=== PATIENT | female | born 1945 | race Caucasian/White ===

== ENCOUNTER 2016-06-15 12:05 | Inpatient (IN) | payer OTHER ==
[2016-06-15] MEDS ORDERED: SODIUM CHLORIDE 1,000 ML IV STA (12:27)
--- NOTE | 2016-06-15 12:43 | PDOC ---
History of Present Illness - General Chief Complaint: Rectal Bleed Stated Complaint: BLOOD IN STOOL Time Seen by Provider: 06/15/16 12:26 History Source: Patient Exam Limitations: No Limitations - History of Present Illness Travel History: No Initial Comments: 06/15/16 12:54 Chief complaint: Abdominal pain and rectal bleeding Patient is a 70-year-old female street of hypertension who has 1 day of left sided abdominal pain with 4 episodes of diarrhea with bright red blood. And is not on any anticoagulants or antiplatelet therapy. no fever or vomiting. had colonoscopy 6 months ago with ?pinched vein. GENERAL/CONSTITUTIONAL: No fever, weakness. dizziness HEAD, EYES, EARS, NOSE AND THROAT: No change in vision. No ear pain or discharge. No sore throat. CARDIOVASCULAR: No chest pain RESPIRATORY: No shortness of breath or cough GASTROINTESTINAL: +pain, no: nausea, vomiting, +diarrhea, + rectal bleeding GENITOURINARY: No dysuria MUSCULOSKELETAL: No neck or back pain SKIN: No rash NEUROLOGIC: No headache, vertigo, loss of consciousness, or loss of sensation. GENERAL: The patient is awake, alert, and fully oriented, in no acute distress. HEAD: Normal with no signs of trauma. EYES: Pupils equal, round and reactive to light, sclera anicteric, conjunctiva clear. ENT: pharynx: no erythema, no exudate, uvula midline NECK: supple CHEST: clear, nontender, rr ABD: soft, + bowel sounds, minimal left lower quadrant tenderness, no guarding Rectal exam: Tender, with brown soft stool EXTREMITIES: Normal range of motion, no edema. NEUROLOGICAL: Normal speech, normal gait. SKIN: Warm, Dry Past History - Past Medical History Allergies/Adverse Reactions: Allergies Allergy/AdvReac Type Severity Reaction Status Date / Time No Known Allergies Allergy Verified 06/15/16 12:06 Home Medications: Ambulatory Orders Ergocalciferol (Vitamin D2) [Vitamin D] 50,000 unit PO WEEKLY 04/12/15 Hydrochlorothiazide [Hctz -] 12.5 mg PO DAILY 04/12/15 Multivitamins [Tab-A-Vit -] 1 tab PO DAILY 04/12/15 Ranitidine [Zantac -] 150 mg PO BID 04/12/15 Anemia: Yes HTN: Yes - Immunization History Immunization Up to Date: Yes - Psycho/Social/Smoking Cessation Hx Anxiety: No Suicidal Ideation: No Smoking Status: Yes Smoking History: Former smoker Have you smoked in the past 12 months: No Number of Cigarettes Smoked Daily: 5 Information on smoking cessation initiated: No Hx Alcohol Use: No Drug/Substance Use Hx: No Substance Use Type: None *Physical Exam - Vital Signs Last Vital Signs Temp Pulse Resp BP Pulse Ox 98.1 F 77 20 159/67 98 06/15/16 12:07 06/15/16 12:07 06/15/16 12:07 06/15/16 12:07 06/15/16 12:07 Heart Score/ECG Review - ECG Intrepretation Comment:: 06/15/16 15:23 Sinus bradycardia, 56, no ST changes ED Treatment Course - LABORATORY CBC & Chemistry Diagram: 06/15/16 13:00 06/15/16 13:00 - RADIOLOGY Radiology Studies Ordered: Category Date Time Status ABDOMEN & PELVIS CT WITH CONTR [CT] Stat CT Scan 06/15/16 12:30 Ordered Medical Decision Making - Medical Decision Making 06/15/16 13:04 Patient with 1 day of left lower quadrant pain, diarrhea or rectal bleeding, patient will be evaluated with labs, CT scan to look for diverticulitis, had 4 episodes of rectal bleeding, + stable 06/15/16 16:34 CT scan shows sigmoid: Thickening and thickening of the jejunal bowel loop in the mid right abdomen. Given sudden onset and several episodes of rectal bleeding, patient will be started on antibiotics and be admitted for further evaluation *DC/Admit/Observation/Transfer Diagnosis at time of Disposition: Non-specific colitis, Rectal hemorrhage - Discharge Dispostion Condition at time of disposition: Stable Admit: Yes
[2016-06-15 13:15] LABS: BASOPHIL 0.6 % (0-2.0); MCH 26.4 pg (25.7-33.7); MCHC 32.3 g/dl (32.0-36.0); MEAN CELL VOLUME 81.7 fl (80-96); MEAN PLT VOLUME 9.7 fl (7.5-11.1); PLATELET COUNT 168 K/MM3 (134-434); RDW 14.4 % (11.6-15.6); WHITE BLOOD COUNT 6.2 K/mm3 (4.0-10.0)
[2016-06-15 13:29] LABS: INR 1.02 (0.82-1.09); PROTHROMBIN TIME (PATIENT) 11.2 SEC (9.98-11.88)
[2016-06-15 13:33] LABS: ALBUMIN 3.6 g/dl (3.4-5.0); ALK PHOS 87 U/L (45-117); ANION GAP 9 (8-16); BILIRUBIN,TOTAL 0.3 mg/dL (0.2-1.0); CALCIUM 8.8 mg/dL (8.5-10.1); CO2 28 mmol/L (21-32); CREATININE 0.8 mg/dL (0.55-1.02); GLUCOSE,RANDOM 93 mg/dL (74-106); SGOT/AST 24 U/L (15-37); SGPT/ALT 25 U/L (12-78); TOT PROT 6.9 g/dl (6.4-8.2)
--- NOTE | 2016-06-15 14:10 | PDOC ---
[id number] 98 06/15/16 12:07 06/15/16 12:07 06/15/16 12:07 06/15/16 12:07 06/15/16 12:07 - Physical Exam Comments: 06/15/16 14:10 The patient was examined by SRAVAN Magdaleno under my direct supervision. I personally evaluated the patient. I concur with the above findings and the plan of care. ED Treatment Course - LABORATORY CBC & Chemistry Diagram: 06/18/16 06:35 06/18/16 06:35 - ADDITIONAL ORDERS Additional order review: Laboratory Results 06/15/16 06/15/16 06/15/16 13:00 13:00 12:27 INR 1.02 Sodium 141 Potassium 4.0 Chloride 104 Carbon Dioxide 28 Anion Gap 9 BUN 18 Creatinine 0.8 Creat Clearance w eGFR > 60 Random Glucose 93 Calcium 8.8 Total Bilirubin 0.3 D AST 24 ALT 25 D Alkaline Phosphatase 87 Total Protein 6.9 Albumin 3.6 Blood Type A POSITIVE Antibody Screen Negative 06/15/16 13:00 RBC 4.37 MCV 81.7 MCHC 32.3 RDW 14.4 MPV 9.7 Neutrophils % 56.0 Lymphocytes % 32.2 Monocytes % 9.2 Eosinophils % 2.0 Basophils % 0.6 - Medications Given in the ED: ED Medications Discontinued Medications Generic Name Dose Route Start Last Admin Trade Name Freq PRN Reason Stop Dose Admin Sodium Chloride 1,000 mls @ 1,000 mls/hr 06/15/16 12:27 06/15/16 12:55 Normal Saline - IV 06/15/16 13:26 1,000 mls/hr ASDIR STA Administration *DC/Admit/Observation/Transfer Diagnosis at time of Disposition: Colitis, Rectal bleed
[2016-06-15 15:13] LABS: URINE APPEARANCE CLEAR; URINE BILIRUBIN NEGATIVE (NEGATIVE); URINE COLOR COLORLESS; URINE GLUCOSE (UA) NEGATIVE (NEGATIVE); URINE KETONE NEGATIVE (NEGATIVE); URINE LEUK ESTERASE NEGATIVE (NEGATIVE); URINE NITRITE NEGATIVE (NEGATIVE); URINE PROTEIN NEGATIVE (NEGATIVE); URINE UROBILINOGEN NEGATIVE E.U./dl (0.2-1.0)
[2016-06-15 15:14] LABS: URINE BLOOD 1+ (NEGATIVE)
[2016-06-15 15:27] LABS: URINE BACTERIA RARE /hpf (NONE SEEN); URINE MUCUS RARE; URINE RBC <1 /hpf (0-3); URINE WBC <1 /hpf (3-5)
[2016-06-15] MEDS ORDERED: LEVOFLOXACIN 500 MG IVPB 100 ML IVPB ONE ×2 (16:25→19:13)
[2016-06-15] MEDS ORDERED: ONDANSETRON 4 MG/2 ML VIAL IVPB PRN (17:13)
[2016-06-15] MEDS ORDERED: ACETAMINOPHEN 325 MG TABLET (FP) PO PRN (17:13)
--- NOTE | 2016-06-15 17:13 | HP ---
CHIEF COMPLAINT: Abdominal pain PCP: Dr. Santhosh Hernandez HISTORY OF PRESENT ILLNESS: This is a 70 year old female with a history of HTN, anemia (no history of transfusions) and depression who presented to the ED today complaining of LLQ, diarrhea, and bright red blood in her stool x 4 today. She reports chills. She denies fevers, nausea/vomiting, or any other symptoms. She denies recent travel (last to x 2 months ago), known sick contacts, and recent antibiotic use. She reports that she had a colonscopy about 6 months ago with a doctor at [address] [place] [address] but cannot recall his name. She was told that she had a polyp, but no other abnormal findings. ER course was notable for: (1) Afebrile (2) WBC within normal limits at 6.2 (3) CTAP with PO/IV contrast: thickening of the sigmoid colon, questionable thickening of jejeunal bowel loop in the right mid abdomen (4) Stool for occult blood: positive Recent Travel: [place] x 2 months ago Social History: Lives with daughter Smoking: Former smoker Alcohol: None Allergies No Known Allergies Allergy (Verified 06/15/16 12:06) HOME MEDICATIONS: Home Medications Medication Instructions Recorded Ergocalciferol (Vitamin D2) 50,000 unit PO WEEKLY 04/12/15 [Vitamin D] Hydrochlorothiazide [Hctz -] 12.5 mg PO DAILY 04/12/15 Multivitamins [Tab-A-Vit -] 1 tab PO DAILY 04/12/15 Ranitidine [Zantac -] 150 mg PO BID 04/12/15 REVIEW OF SYSTEMS CONSTITUTIONAL: Chills Absent: fever, diaphoresis, generalized weakness, malaise, loss of appetite, weight change HEENT: Absent: rhinorrhea, nasal congestion, throat pain, throat swelling, difficulty swallowing, mouth swelling, ear pain, eye pain, visual changes CARDIOVASCULAR: Absent: chest pain, syncope, palpitations, irregular heart rate, lightheadedness , peripheral edema RESPIRATORY: Absent: cough, shortness of breath, dyspnea with exertion, orthopnea, wheezing, stridor, hemoptysis GASTROINTESTINAL: See HPI GENITOURINARY: Absent: dysuria, frequency, urgency, hesitancy, hematuria, flank pain, genital pain MUSCULOSKELETAL: Absent: myalgia, arthralgia, joint swelling, back pain, neck pain SKIN: Absent: rash, itching, pallor HEMATOLOGIC/IMMUNOLOGIC: Absent: easy bleeding, easy bruising, lymphadenopathy, frequent infections ENDOCRINE: Absent: unexplained weight gain, unexplained weight loss, heat intolerance, cold intolerance NEUROLOGIC: Absent: headache, focal weakness or paresthesias, dizziness, unsteady gait, seizure, mental status changes, bladder or bowel incontinence PSYCHIATRIC: Absent: anxiety, depression, suicidal or homicidal ideation, hallucinations. PHYSICAL EXAMINATION Vital Signs - 24 hr 06/15/16 12:07 Temperature 98.1 F Pulse Rate 77 Respiratory 20 Rate Blood Pressure 159/67 O2 Sat by Pulse 98 Oximetry (%) GENERAL: Awake, alert, and fully oriented, in no acute distress. HEAD: Normal with no signs of trauma. EYES: Pupils equal, round and reactive to light, extraocular movements intact, sclera anicteric, conjunctiva clear. No lid lag. EARS, NOSE, THROAT: Ears normal, nares patent, oropharynx clear without exudates. Moist mucous membranes. NECK: Normal range of motion, supple without lymphadenopathy, JVD, or masses. LUNGS: Breath sounds equal, clear to auscultation bilaterally. No wheezes, and no crackles. No accessory muscle use. HEART: Regular rate and rhythm, normal S1 and S2 without murmur, rub or gallop. ABDOMEN: Soft, LLQ tenderness to deep palpation, not distended, normoactive bowel sounds, no guarding, no rebound, no masses. No hepatomegaly or splenomegaly. MUSCULOSKELETAL: Normal range of motion at all joints. No bony deformities or tenderness. No CVA tenderness. UPPER EXTREMITIES: 2+ pulses, warm, well-perfused. No cyanosis. No clubbing. Cap refill <2 seconds. No peripheral edema. LOWER EXTREMITIES: 2+ pulses, warm, well-perfused. No calf tenderness. No peripheral edema. NEUROLOGICAL: Cranial nerves II-XII intact. Normal speech. Normal gait. PSYCHIATRIC: Cooperative. Good eye contact. Appropriate mood and affect. SKIN: Warm, dry, normal turgor, no rashes or lesions noted. Laboratory Results - last 24 hr 06/15/16 06/15/16 06/15/16 12:27 13:00 13:00 WBC 6.2 RBC 4.37 Hgb 11.5 Hct 35.7 MCV 81.7 MCHC 32.3 RDW 14.4 Plt Count 168 MPV 9.7 Neutrophils % 56.0 Lymphocytes % 32.2 Monocytes % 9.2 Eosinophils % 2.0 Basophils % 0.6 INR 1.02 Sodium Potassium Chloride Carbon Dioxide Anion Gap BUN Creatinine Creat Clearance w eGFR Random Glucose Calcium Total Bilirubin AST ALT Alkaline Phosphatase Total Protein Albumin Urine Color Urine Appearance Urine pH Ur Specific [place] Urine Protein Urine Glucose (UA) Urine Ketones Urine Blood Urine Nitrite Urine Bilirubin Urine Urobilinogen Ur Leukocyte Esterase Urine RBC Urine WBC Urine Bacteria Urine Mucus Blood Type A POSITIVE Antibody Screen Negative 06/15/16 06/15/16 13:00 14:06 WBC RBC Hgb Hct MCV MCHC RDW Plt Count MPV Neutrophils % Lymphocytes % Monocytes % Eosinophils % Basophils % INR Sodium 141 Potassium 4.0 Chloride 104 Carbon Dioxide 28 Anion Gap 9 BUN 18 Creatinine 0.8 Creat Clearance w eGFR > 60 Random Glucose 93 Calcium 8.8 Total Bilirubin 0.3 D AST 24 ALT 25 D Alkaline Phosphatase 87 Total Protein 6.9 Albumin 3.6 Urine Color Colorless Urine Appearance Clear Urine pH 8.0 D Ur Specific [place] 1.003 Urine Protein Negative Urine Glucose (UA) Negative Urine Ketones Negative Urine Blood 1+ H Urine Nitrite Negative Urine Bilirubin Negative Urine Urobilinogen Negative Ur Leukocyte Esterase Negative Urine RBC <1 Urine WBC <1 Urine Bacteria Rare Urine Mucus Rare Blood Type Antibody Screen ASSESSMENT/PLAN: 70 year old female with colitis and rectal bleeding. Problem List - Problem (1) Colitis Assessment/Plan: -Possibly infectious, +history of chills -Continue Levaquin/Flagyl -Morphine prn pain, Zofran prn nausea -GI consultation requested Code(s): K52.9 - NONINFECTIVE GASTROENTERITIS AND COLITIS, UNSPECIFIED (2) Rectal bleed Assessment/Plan: -As above Code(s): K62.5 - HEMORRHAGE OF ANUS AND RECTUM (3) HTN (hypertension) Assessment/Plan: -Aboce goal -Resume home Norvasc/HCTZ and monitor Code(s): I10 - ESSENTIAL (PRIMARY) HYPERTENSION (4) Depression Assessment/Plan: -Continue Seroquel Code(s): F32.9 - MAJOR DEPRESSIVE DISORDER, SINGLE EPISODE, UNSPECIFIED (5) DVT prophylaxis Assessment/Plan: -No chemical prophylaxis given rectal bleeding -SCDs -Early ambulation Code(s): BPS3128 - Visit type - Emergency Visit Emergency Visit: Yes ED Registration Date: 06/15/16 Care time: The patient presented to the Emergency Department on the above date and was hospitalized for further evaluation of their emergent condition. - New Patient This patient is new to me today: Yes Date on this admission: 06/15/16 - Critical Care Critical Care patient: No
[2016-06-15] MEDS ORDERED: morphine CARPU-JECT 2 MG/1 ML DISP.SYRIN IVPUSH PRN (17:15)
[2016-06-15] MEDS ORDERED: SODIUM CHLORIDE 1,000 ML IV SCH (17:15)
[2016-06-15] MEDS: METRONIDAZOLE 500 MG PREMIXED 100 ML IVPB SCH ×2 (17:57→22:18)
[2016-06-15] MEDS ORDERED: METRONIDAZOLE 500 MG PREMIXED 100 ML IVPB SCH (18:00)
[2016-06-15 18:17] LABS: STOOL FOR OCCULT BLOOD POSITIVE (NEGATIVE)
[2016-06-15] MEDS ORDERED: METRONIDAZOLE 500 MG PREMIXED 100 ML IVPB ONE ×2 (19:26→22:12)
[2016-06-15] MEDS ORDERED: RANITIDINE HCL 150 MG TABLET (FP) PO SCH (22:00)
[2016-06-15] MEDS ORDERED: PANTOPRAZOLE 40 MG TABLET (FP) ONE (22:11)
[2016-06-15] MEDS ORDERED: ATORVASTATIN CA 40 MG TABLET (FP) ONE (22:11)
[2016-06-15] MEDS ORDERED: QUEtiapine FUMARATE 25 MG TABLET (FP) ONE (22:12)
[2016-06-15] MEDS: PANTOPRAZOLE 20 MG TABLET (FP) PO SCH (22:18)
[2016-06-15] MEDS: ATORVASTATIN CA 20 MG TABLET (FP) PO SCH (22:18)
[2016-06-15] MEDS: QUEtiapine FUMARATE 50 MG TABLET PO SCH (22:19)
[2016-06-15] MEDS ORDERED: amLODIPine BESYLATE 5 MG TABLET (FP) PO ONE (23:04)
[2016-06-15 23:14] VITALS: BMI 22.0
[2016-06-16] MEDS: METRONIDAZOLE 500 MG PREMIXED 100 ML IVPB SCH ×4 (02:23→21:44)
[2016-06-16 07:55] LABS: BASOPHIL 0.7 % (0-2.0); EOSINOPHIL 1.9 % (0-4.5); MCH 26.9 pg (25.7-33.7); MCHC 32.5 g/dl (32.0-36.0); MEAN CELL VOLUME 82.6 fl (80-96); MEAN PLT VOLUME 10.3 fl (7.5-11.1); NEUTROPHILS 54.2 % (42.8-82.8); RDW 14.4 % (11.6-15.6); WHITE BLOOD COUNT 6.3 K/mm3 (4.0-10.0)
[2016-06-16 08:28] LABS: ALBUMIN 3.2 g/dl (3.4-5.0); ANION GAP 7 (8-16); CALCIUM 8.9 mg/dL (8.5-10.1); CO2 28 mmol/L (21-32); GLUCOSE,RANDOM 80 mg/dL (74-106); MAGNESIUM 2.1 mg/dL (1.8-2.4)
[2016-06-16 08:33] LABS: ALK PHOS 92 U/L (45-117); BILIRUBIN,TOTAL 0.3 mg/dL (0.2-1.0); CREATININE 0.9 mg/dL (0.55-1.02); SGOT/AST 20 U/L (15-37); SGPT/ALT 20 U/L (12-78); TOT PROT 6.4 g/dl (6.4-8.2)
--- NOTE | 2016-06-16 09:44 | CON.GI ---
Consult Consult Specialty:: GI Referred by:: Hospitalist Reason for Consultation:: Rectal bleed - History of Present Illness History of Present Illness: Called to see this service patient. Please call GI on service to evaluate the patient. Cursory exam reveals that the patient is hemodynamically stable and has a stable hematocrit. No active bleeding at this time. - Past Medical History ...: No - Alcohol/Substance Use Hx Alcohol Use: No - Smoking History Smoking history: Current every day smoker Have you smoked in the past 12 months: Yes Aproximately how many cigarettes per day: 5 Home Medications - Allergies Allergies/Adverse Reactions: Allergies Allergy/AdvReac Type Severity Reaction Status Date / Time No Known Allergies Allergy Verified 06/15/16 12:06 - Home Medications Home Medications: Ambulatory Orders Amlodipine Besylate [Norvasc -] 5 mg PO DAILY 06/15/16 Atorvastatin Ca [Lipitor] 20 mg PO HS 06/15/16 Calcium 500Mg/Vit-D 200 Units [Os-Del 500+D -] 1 combo PO DAILY 06/15/16 Cyproheptadine Solution [Periactin Solution -] 2 mg PO Q12H 06/15/16 Hydrochlorothiazide [Hctz -] 12.5 mg PO DAILY 06/15/16 Omeprazole 20 mg PO BID 06/15/16 Quetiapine Fumarate [Seroquel -] 50 mg PO HS 06/15/16 Sertraline HCl 50 mg PO DAILY 06/15/16 Physical Exam-GI Vital Signs: Vital Signs Temperature 98.4 F 06/16/16 09:04 Pulse Rate 74 06/16/16 09:04 Respiratory Rate 18 06/16/16 09:04 Blood Pressure 128/64 06/16/16 09:04 O2 Sat by Pulse Oximetry (%) 98 06/15/16 23:16 Labs: CBC, BMP 06/16/16 06:35 06/16/16 06:45 INR, PTT INR 1.02 (0.82-1.09) 06/15/16 13:00
[2016-06-16] MEDS: LEVOFLOXACIN 750 MG IVPB 150 ML IVPB SCH (10:00)
[2016-06-16] MEDS: PANTOPRAZOLE 20 MG TABLET (FP) PO SCH ×2 (10:00→21:45)
[2016-06-16] MEDS: amLODIPine BESYLATE 5 MG TABLET (FP) PO SCH (10:00)
[2016-06-16] MEDS: HYDROCHLOROTHIAZIDE 12.5 MG CAPSULE (FP) PO SCH (10:00)
[2016-06-16] MEDS: MULTIVITAMINS (DAILY MVI) TABLET (FP) PO SCH (10:00)
[2016-06-16] MEDS ORDERED: CALCIUM 500MG/VIT-D 200 UNITS COMBO TABLET (FP) PO SCH (10:00)
[2016-06-16 10:26] LABS: PLATELET COMMENT2 NO CLOTTING DETECTED; PLATELET COMMENT3 FEW GIANT PLTS; PLATELET COUNT 175 K/MM3 (134-434); PLATELET ESTIMATE ADEQUATE (NORMAL)
--- NOTE | 2016-06-16 13:41 | EKG ---
Test Reason : Blood Pressure : / mmHG Vent. Rate : 056 BPM Atrial Rate : 056 BPM P-R Int : 106 ms QRS Dur : 072 ms QT Int : 474 ms P-R-T Axes : 022 072 069 degrees QTc Int : 457 ms SINUS BRADYCARDIA WITH SHORT [place] OTHERWISE NORMAL ECG WHEN COMPARED WITH ECG OF 12-APR-2015 10:18, NO SIGNIFICANT CHANGE WAS FOUND Confirmed by SUBHASH KELLEY MD ([id number]) on 06/16/2016 1:40:32 PM Referred By: Confirmed By:SUBHASH KELLEY MD
--- NOTE | 2016-06-16 13:43 | PN ---
Physical Exam: SUBJECTIVE: Patient seen and examined Patient is comfortable with no acute distress, no further rectal bleed. No fever or chills, no shortness of breath. no nausea or vomiting. OBJECTIVE: Vital Signs Temperature 98.4 F 06/16/16 09:04 Pulse Rate 74 06/16/16 09:04 Respiratory Rate 18 06/16/16 09:04 Blood Pressure 128/64 06/16/16 09:04 O2 Sat by Pulse Oximetry (%) 98 06/15/16 23:16 GENERAL: The patient is awake, alert, and fully oriented, in no acute distress. HEAD: Normal with no signs of trauma. EYES: PERRL, extraocular movements intact, sclera anicteric, conjunctiva clear. ENT: Ears normal, oropharynx clear without exudates, moist mucous membranes. NECK: Trachea midline, full range of motion, supple. LUNGS: Breath sounds equal, clear to auscultation bilaterally, no wheezes, no crackles, no accessory muscle use. HEART: Regular rate and rhythm, S1, S2 without murmur, rub or gallop. ABDOMEN: Soft, nontender, nondistended, normoactive bowel sounds, no guarding, no rebound, no hepatosplenomegaly, no masses. EXTREMITIES: 2+ pulses, warm, well-perfused, no edema. NEUROLOGICAL: Cranial nerves II through XII grossly intact. Normal speech. PSYCH: Normal mood, normal affect. SKIN: Warm, dry, normal turgor, no rashes or lesions noted CBCD WBC 6.3 K/mm3 (4.0-10.0) 06/16/16 06:35 RBC 4.36 M/mm3 (3.60-5.2) 06/16/16 06:35 Hgb 11.7 GM/dL (10.7-15.3) 06/16/16 06:35 Hct 36.0 % (32.4-45.2) 06/16/16 06:35 MCV 82.6 fl (80-96) 06/16/16 06:35 MCHC 32.5 g/dl (32.0-36.0) 06/16/16 06:35 RDW 14.4 % (11.6-15.6) 06/16/16 06:35 Plt Count 175 K/MM3 (134-434) 06/16/16 06:35 MPV 10.3 fl (7.5-11.1) 06/16/16 06:35 CMP Sodium 141 mmol/L (136-145) 06/16/16 06:45 Potassium 3.9 mmol/L (3.5-5.1) 06/16/16 06:45 Chloride 106 mmol/L (98-107) 06/16/16 06:45 Carbon Dioxide 28 mmol/L (21-32) 06/16/16 06:45 Anion Gap 7 (8-16) L 06/16/16 06:45 BUN 13 mg/dL (7-18) D 06/16/16 06:45 Creatinine 0.9 mg/dL (0.55-1.02) 06/16/16 06:45 Creat Clearance w eGFR > 60 (>60) 06/16/16 06:45 Random Glucose 80 mg/dL (74-106) 06/16/16 06:45 Calcium 8.9 mg/dL (8.5-10.1) 06/16/16 06:45 Total Bilirubin 0.3 mg/dL (0.2-1.0) 06/16/16 06:45 AST 20 U/L (15-37) 06/16/16 06:45 ALT 20 U/L (12-78) 06/16/16 06:45 Alkaline Phosphatase 92 U/L (45-117) 06/16/16 06:45 Total Protein 6.4 g/dl (6.4-8.2) 06/16/16 06:45 Albumin 3.2 g/dl (3.4-5.0) L 06/16/16 06:45 Active Medications Generic Name Dose Route Start Last Admin Trade Name Freq PRN Reason Stop Dose Admin Acetaminophen 650 mg 06/15/16 17:13 Tylenol - PO Q4H PRN FEVER OR PAIN Amlodipine Besylate 5 mg 06/16/16 10:00 06/16/16 10:00 Norvasc - PO 5 mg DAILY MU Administration Atorvastatin Calcium 20 mg 06/15/16 22:00 06/15/16 22:18 Lipitor - PO 20 mg HS MU Administration Hydrochlorothiazide 12.5 mg 06/16/16 10:00 06/16/16 10:00 Hctz - PO 12.5 mg DAILY MU Administration Metronidazole 100 mls @ 100 mls/hr 06/15/16 17:30 06/16/16 09:00 Flagyl 500mg Premixed Ivpb - IVPB 100 mls/hr Q6H-IV MU Administration Levofloxacin 150 mls @ 150 mls/hr 06/16/16 10:00 06/16/16 10:00 Levaquin 750 Mg Premixed Ivpb - IVPB 150 mls/hr DAILY MU Administration Morphine Sulfate 2 mg 06/15/16 17:15 Morphine Injection - IVPUSH Q4H PRN PAIN Multivitamins/Minerals/Vitamin C 1 tab 06/16/16 10:00 06/16/16 10:00 Tab-A-Vit - PO 1 tab DAILY MU Administration Ondansetron HCl 4 mg 06/15/16 17:13 Zofran Injection IVPB Q6H PRN NAUSEA Pantoprazole Sodium 20 mg 06/15/16 22:00 06/16/16 10:00 Protonix - PO 20 mg BID MU Administration Quetiapine Fumarate 50 mg 06/15/16 22:00 06/15/16 22:19 Seroquel - PO 50 mg HS MU Administration Home Medications Medication Instructions Recorded Amlodipine Besylate [Norvasc -] 5 mg PO DAILY 06/15/16 Atorvastatin Ca [Lipitor] 20 mg PO HS 06/15/16 Calcium 500Mg/Vit-D 200 Units 1 combo PO DAILY 06/15/16 [Os-Del 500+D -] Cyproheptadine Solution [Periactin 2 mg PO Q12H 06/15/16 Solution -] Hydrochlorothiazide [Hctz -] 12.5 mg PO DAILY 06/15/16 Omeprazole 20 mg PO BID 06/15/16 Quetiapine Fumarate [Seroquel -] 50 mg PO HS 06/15/16 Sertraline HCl 50 mg PO DAILY 06/15/16 ASSESSMENT/PLAN: This is a 70 year old female with a history of HTN, anemia (no history of transfusions) and depression who presented to the ED today complaining of LLQ, diarrhea, and bright red blood in her stool x 4 today # Acute colitis Possibly infectious,with Hx of chills on Levaquin/Flagyl continue, GI consultation appreciated # Rectal bleed most like due to HEMORROIDS will monitor # HTN Resume home Norvasc/HCTZ # Depression CONTINUE sERTALAZINE DVT [id number] ambulation , nO ANTICOAGULATION SINCE HAVING RECTAL BLEED FOR NOW. Visit type - Emergency Visit Emergency Visit: Yes ED Registration Date: 06/15/16 Care time: The patient presented to the Emergency Department on the above date and was hospitalized for further evaluation of their emergent condition. - New Patient This patient is new to me today: Yes Date on this admission: 06/16/16 - Critical Care Critical Care patient: No
--- NOTE | 2016-06-16 13:57 | CON.GI ---
Consult Consult Specialty:: GI Referred by:: Hospitalists Reason for Consultation:: Rectal bleeding - History of Present Illness Chief Complaint: Rectal bleeding History of Present Illness: 70F admitted for evaluation of three episodes of BRBPR that occurred yesterday morning. History obtained though her daughter who was present bedside as Ms. Lockett speaks Bulgarian. Was in her [place] when she had three bowel movements yesterday morning that were just blood (bright red, no clots). This was followed by non bloody diarrheal bowel movement. she described a mild left sided abdominal pain as well. There has been no further diarrhea or rectal bleeding. She went to the [facility] 2 months ago (uneventful trip). There has been no recent Abx use. No similar episodes in the past. had EGD and colonoscopy with Dr. 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 EGD = mild gastritis. She denies laxative use / constipation. No family history of colorectal cancer or other Gi malignancy. - History Source History Provided By: Patient, Family Member Limitations to Obtaining History: Language Barrier - Past Medical History Cardio/Vascular: Yes: HTN ...: No Heme/Onc: Yes: Anemia Psych: Yes: Depression Rheumatology: Yes: Rheumatoid Arthritis - Past Surgical History Past Surgical History: Yes: Cataract Removal (bilaterally), - Alcohol/Substance Use Hx Alcohol Use: No History of Substance Use: reports: None - Smoking History Smoking history: Current every day smoker Have you smoked in the past 12 months: Yes Aproximately how many cigarettes per day: 5 - Social History Usual Living Arrangement: Alone ADL: Independent 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year[place] Multiple years prior History of Recent Travel: Yes ([facility] 2 months ago) Home Medications - Allergies Allergies/Adverse Reactions: Allergies Allergy/AdvReac Type Severity Reaction Status Date / Time No Known Allergies Allergy Verified 06/15/16 12:06 - Home Medications Home Medications: Ambulatory Orders Amlodipine Besylate [Norvasc -] 5 mg PO DAILY 06/15/16 Atorvastatin Ca [Lipitor] 20 mg PO HS 06/15/16 Calcium 500Mg/Vit-D 200 Units [Os-Del 500+D -] 1 combo PO DAILY 06/15/16 Cyproheptadine Solution [Periactin Solution -] 2 mg PO Q12H 06/15/16 Hydrochlorothiazide [Hctz -] 12.5 mg PO DAILY 06/15/16 Omeprazole 20 mg PO BID 06/15/16 Quetiapine Fumarate [Seroquel -] 50 mg PO HS 06/15/16 Sertraline HCl 50 mg PO DAILY 06/15/16 Family Disease History - Family Disease History Other Family History: No family history of colorectal cancer, colitis or other GI malignancy Review of Systems - Review of Systems Constitutional: denies: Chills, Unintentional Wgt. Loss Cardiovascular: denies: Chest Pain Respiratory: denies: SOB Gastrointestinal: reports: Abdominal Pain, Diarrhea, Rectal Bleeding. denies: Constipation, Melena, Nausea, Vomiting, Vomiting Blood Musculoskeletal: reports: Joint Pain Physical Exam-GI Vital Signs: Vital Signs Temperature 98.4 F 06/16/16 09:04 Pulse Rate 74 06/16/16 09:04 Respiratory Rate 18 06/16/16 09:04 Blood Pressure 128/64 06/16/16 09:04 O2 Sat by Pulse Oximetry (%) 98 06/15/16 23:16 Constitutional: Yes: Calm Eyes: No: Sclera Icterus Cardiovascular: Yes: Regular Rate and Rhythm, Murmur (2/6 systolic murmur heard best at the RSB) Gastrointestinal Inspection: Yes: Scars (pelvic). No: Distention ...Auscultate: Yes: Normoactive Bowel Sounds ...Palpate: Yes: Tenderness (mild TTP) ...Percussion: No: Tympanitic ...Rectal Exam: Yes: Other (no blood / stool) Edema: No (no LE edema) Neurological: Yes: Alert, Oriented Labs: CBC, BMP 06/16/16 06:35 06/16/16 06:45 INR, PTT INR 1.02 (0.82-1.09) 06/15/16 13:00 Imaging - Results Cat Scan: Report Reviewed (? thickening of sigmoid colon vs. underdistention), Image Reviewed Problem List - Problems (1) Rectal bleed Assessment/Plan: while hemorrhoidal bleding could be considered given hemodynamic stability and stability of H/H, given questionable CT scan findings and pain associated with the beleding, a left sided colitis such as mild ischemic colitis would also need to be considered in the differential. Clinically stable Advised the following: Clears for now Abx If continued abdominal pain / rectal bleeding, colonoscopy for further evaluation. Discussed plan with patient and her family Code(s): K62.5 - HEMORRHAGE OF ANUS AND RECTUM
[2016-06-16] MEDS ORDERED: QUEtiapine FUMARATE 25 MG TABLET (FP) ONE (20:57)
[2016-06-16] MEDS: QUEtiapine FUMARATE 50 MG TABLET PO SCH (21:45)
[2016-06-16] MEDS: ATORVASTATIN CA 20 MG TABLET (FP) PO SCH (21:45)
[2016-06-17] MEDS: METRONIDAZOLE 500 MG PREMIXED 100 ML IVPB SCH ×4 (02:55→21:34)
[2016-06-17] MEDS: MULTIVITAMINS (DAILY MVI) TABLET (FP) PO SCH (09:46)
[2016-06-17] MEDS: amLODIPine BESYLATE 5 MG TABLET (FP) PO SCH (09:46)
[2016-06-17] MEDS: LEVOFLOXACIN 750 MG IVPB 150 ML IVPB SCH (09:46)
[2016-06-17] MEDS: PANTOPRAZOLE 20 MG TABLET (FP) PO SCH ×2 (09:47→21:35)
[2016-06-17] MEDS: HYDROCHLOROTHIAZIDE 12.5 MG CAPSULE (FP) PO SCH (09:47)
[2016-06-17] MEDS ORDERED: ERGOCALCIFEROL (VITAMIN D2) 50,000 UNIT CAPSULE (FP) PO SCH (10:00)
--- NOTE | 2016-06-17 10:58 | PN ---
GI Progress Note Subjective: No further rectal bleeding Still with left sided abdominal pain - Objective Vital Signs: Vital Signs Temperature 98.4 F 06/17/16 09:58 Pulse Rate 80 06/17/16 09:58 Respiratory Rate 17 06/17/16 09:58 Blood Pressure 151/91 06/17/16 09:58 O2 Sat by Pulse Oximetry (%) 99 06/16/16 21:00 Constitutional: Calm Eyes: No: Sclera Icterus Cardiovascular: Yes: Regular Rate and Rhythm Respiratory: Yes: CTA Bilaterally Gastrointestinal Inspection: No: Distention ...Auscultate: Yes: Normoactive Bowel Sounds ...Palpate: Yes: Tenderness (TTP LLQ) Edema: No Labs: CBC, BMP 06/16/16 06:35 06/16/16 06:45 INR, PTT INR 1.02 (0.82-1.09) 06/15/16 13:00 Problem List - Problems (1) Rectal bleed Assessment/Plan: Resolved but still with left sided abdominal pain. ? mild ischemic colitis Plan for colonoscopy 06/18/16. Discussed plan with the patient with her nurse aiding in [place] transplation. We discussed potential risks of the procedure like but not limited to bleeding, perforation requiring surgery to repair, infection,sedation medication effects all of which could be potentially life threatening. She has agreed to the procedure. Code(s): K62.5 - HEMORRHAGE OF ANUS AND RECTUM
[2016-06-17] MEDS ORDERED: BISACODYL 5 MG TABLET.DR (FP) PO ONE (13:00)
[2016-06-17] MEDS ORDERED: POLYETHYLENE GLYCOL 3350 255 GM BTL PO ONE (15:00)
--- NOTE | 2016-06-17 18:00 | PN ---
Progress Note (short form) - Note Progress Note: Patient is comfortable with no acute distress, no fever or chills. Temperature 98.3 F 06/17/16 14:18 Pulse Rate 83 06/17/16 14:18 Respiratory Rate 18 06/17/16 14:18 Blood Pressure 151/91 06/17/16 09:58 O2 Sat by Pulse Oximetry (%) 99 06/16/16 21:00 GENERAL: The patient is awake, alert, and fully oriented, in no acute distress. HEAD: Normal with no signs of trauma. EYES: PERRL, extraocular movements intact, sclera anicteric, conjunctiva clear. ENT: Ears normal, oropharynx clear without exudates, moist mucous membranes. NECK: Trachea midline, full range of motion, supple. LUNGS: Breath sounds equal, clear to auscultation bilaterally, no wheezes, no crackles, no accessory muscle use. HEART: Regular rate and rhythm, S1, S2 without murmur, rub or gallop. ABDOMEN: Soft, nontender, nondistended, normoactive bowel sounds, no guarding, no rebound, no hepatosplenomegaly, no masses. EXTREMITIES: 2+ pulses, warm, well-perfused, no edema. NEUROLOGICAL: Cranial nerves II through XII grossly intact. Normal speech, gait is steady PSYCH: Normal mood, normal affect. SKIN: Warm, dry, normal turgor, no rashes or lesions noted CBCD WBC 6.3 K/mm3 (4.0-10.0) 06/16/16 06:35 RBC 4.36 M/mm3 (3.60-5.2) 06/16/16 06:35 Hgb 11.7 GM/dL (10.7-15.3) 06/16/16 06:35 Hct 36.0 % (32.4-45.2) 06/16/16 06:35 MCV 82.6 fl (80-96) 06/16/16 06:35 MCHC 32.5 g/dl (32.0-36.0) 06/16/16 06:35 RDW 14.4 % (11.6-15.6) 06/16/16 06:35 Plt Count 175 K/MM3 (134-434) 06/16/16 06:35 MPV 10.3 fl (7.5-11.1) 06/16/16 06:35 CMP Sodium 141 mmol/L (136-145) 06/16/16 06:45 Potassium 3.9 mmol/L (3.5-5.1) 06/16/16 06:45 Chloride 106 mmol/L (98-107) 06/16/16 06:45 Carbon Dioxide 28 mmol/L (21-32) 06/16/16 06:45 Anion Gap 7 (8-16) L 06/16/16 06:45 BUN 13 mg/dL (7-18) D 06/16/16 06:45 Creatinine 0.9 mg/dL (0.55-1.02) 06/16/16 06:45 Creat Clearance w eGFR > 60 (>60) 06/16/16 06:45 Random Glucose 80 mg/dL (74-106) 06/16/16 06:45 Calcium 8.9 mg/dL (8.5-10.1) 06/16/16 06:45 Total Bilirubin 0.3 mg/dL (0.2-1.0) 06/16/16 06:45 AST 20 U/L (15-37) 06/16/16 06:45 ALT 20 U/L (12-78) 06/16/16 06:45 Alkaline Phosphatase 92 U/L (45-117) 06/16/16 06:45 Total Protein 6.4 g/dl (6.4-8.2) 06/16/16 06:45 Albumin 3.2 g/dl (3.4-5.0) L 06/16/16 06:45 Current Medications Generic Name Dose Route Start Last Admin Trade Name [place]q PRN Reason Stop Dose Admin Acetaminophen 650 mg 06/15/16 17:13 Tylenol - PO Q4H PRN FEVER OR PAIN Amlodipine Besylate 5 mg 06/16/16 10:00 06/17/16 09:46 Norvasc - PO 5 mg DAILY MU Administration Atorvastatin Calcium 20 mg 06/15/16 22:00 06/16/16 21:45 Lipitor - PO 20 mg HS MU Administration Hydrochlorothiazide 12.5 mg 06/16/16 10:00 06/17/16 09:47 Hctz - PO 12.5 mg DAILY MU Administration Metronidazole 100 mls @ 100 mls/hr 06/15/16 17:30 06/17/16 14:19 Flagyl 500mg Premixed Ivpb - IVPB 100 mls/hr Q6H-IV MU Administration Levofloxacin 150 mls @ 150 mls/hr 06/16/16 10:00 06/17/16 09:46 Levaquin 750 Mg Premixed Ivpb - IVPB 150 mls/hr DAILY MU Administration Morphine Sulfate 2 mg 06/15/16 17:15 Morphine Injection - IVPUSH Q4H PRN PAIN Multivitamins/Minerals/Vitamin C 1 tab 06/16/16 10:00 06/17/16 09:46 Tab-A-Vit - PO 1 tab DAILY MU Administration Ondansetron HCl 4 mg 06/15/16 17:13 Zofran Injection IVPB Q6H PRN NAUSEA Pantoprazole Sodium 20 mg 06/15/16 22:00 06/17/16 09:47 Protonix - PO 20 mg BID MU Administration Quetiapine Fumarate 50 mg 06/15/16 22:00 06/16/16 21:45 Seroquel - PO 50 mg HS MU Administration Home Medications Medication Instructions Recorded Amlodipine Besylate [Norvasc -] 5 mg PO DAILY 06/15/16 Atorvastatin Ca [Lipitor] 20 mg PO HS 06/15/16 Calcium 500Mg/Vit-D 200 Units 1 combo PO DAILY 06/15/16 [Os-Del 500+D -] Cyproheptadine Solution [Periactin 2 mg PO Q12H 06/15/16 Solution -] Hydrochlorothiazide [Hctz -] 12.5 mg PO DAILY 06/15/16 Omeprazole 20 mg PO BID 06/15/16 Quetiapine Fumarate [Seroquel -] 50 mg PO HS 06/15/16 Sertraline HCl 50 mg PO DAILY 06/15/16 A/P: This is a 70 year old female with a history of HTN, anemia (no history of transfusions) and depression who presented to the ED today complaining of LLQ, diarrhea, and bright red blood in her stool x 4 today # Acute colitis with hx of chills on Levaquin/Flagyl continue, GI consult . # Rectal bleed patient is going for colonoscopy in am as per GI # HTN Resume home Norvasc/HCTZ # Depression CONTINUE sERTALAZINE DVT [id number] ambulation , nO ANTICOAGULATION SINCE HAVING RECTAL BLEED FOR NOW. NPO after midnight for colonoscopy Visit type - Emergency Visit Emergency Visit: Yes ED Registration Date: 06/15/16 Care time: The patient presented to the Emergency Department on the above date and was hospitalized for further evaluation of their emergent condition. - New Patient This patient is new to me today: No - Critical Care Critical Care patient: No - Discharge Referral Referred to [facility] Med P.C.: No
[2016-06-17] MEDS ORDERED: QUEtiapine FUMARATE 25 MG TABLET (FP) ONE (21:21)
[2016-06-17] MEDS: ATORVASTATIN CA 20 MG TABLET (FP) PO SCH (21:35)
[2016-06-17] MEDS: QUEtiapine FUMARATE 50 MG TABLET PO SCH (21:35)
[2016-06-18] MEDS: METRONIDAZOLE 500 MG PREMIXED 100 ML IVPB SCH ×2 (02:46→08:38)
[2016-06-18 08:21] LABS: BASOPHIL 0.5 % (0-2.0); EOSINOPHIL 1.9 % (0-4.5); MCHC 33.2 g/dl (32.0-36.0); MEAN CELL VOLUME 81.4 fl (80-96); MEAN PLT VOLUME 9.8 fl (7.5-11.1); NEUTROPHILS 58.6 % (42.8-82.8); PLATELET COUNT 158 K/MM3 (134-434); RDW 14.5 % (11.6-15.6)
[2016-06-18 08:52] LABS: CALCIUM 8.9 mg/dL (8.5-10.1); CREATININE 1.1 mg/dL (0.55-1.02)
[2016-06-18] MEDS: HYDROCHLOROTHIAZIDE 12.5 MG CAPSULE (FP) PO SCH (09:21)
[2016-06-18] MEDS: amLODIPine BESYLATE 5 MG TABLET (FP) PO SCH (09:21)
[2016-06-18] MEDS: PANTOPRAZOLE 20 MG TABLET (FP) PO SCH (09:30)
[2016-06-18] MEDS: LEVOFLOXACIN 750 MG IVPB 150 ML IVPB SCH (09:30)
[2016-06-18] MEDS ORDERED: LIDOCAINE HCL/PF 1% SDV 5ML VIAL ONE (11:43)
[2016-06-18] MEDS ORDERED: PROPOFOL 20 ML ONE ×2 (11:43)
--- NOTE | 2016-06-18 12:30 | PN ---
Progress Note (short form) - Note Progress Note: GI Procedure NOte: Please see scanned colonoscopy report. The patient was found to have right colon angiodysplasia and left colon diverticulosis but this self limited bleeding is felt to have come from her hemorrhoids. No ischemic colitis was seen. Will advance diet. Once tolerated can discharge. If anemia ensues then cauterization of the AVMs will have to be considered. A polyp was removed and colonoscopy should be repeated in 5 years. Discussed with patient via club former.
[2016-06-18] MEDS ORDERED: POTASSIUM CHLORIDE TABS 20 MEQ TABLET.ER (FP) PO ONE ×2 (12:32→17:15)
[2016-06-18] MEDS: MULTIVITAMINS (DAILY MVI) TABLET (FP) PO SCH (17:32)
--- NOTE | 2016-06-18 18:49 | DS ---
Physical Exam: SUBJECTIVE: Patient seen and examined Comfortable , tolerated diet well. OBJECTIVE: Vital Signs Period Temp Pulse Resp BP Sys/Fatima Pulse Ox Last 24 Hr 97.6 F-98.3 F 18-89 18-20 94-168/38-89 99-100 PHYSICAL EXAM GENERAL: The patient is awake, alert, and fully oriented, in no acute distress. HEAD: Normal with no signs of trauma. EYES: PERRL, extraocular movements intact, sclera anicteric, conjunctiva clear. ENT: Ears normal, nares patent, oropharynx clear without exudates, moist mucous membranes. NECK: Trachea midline, full range of motion, supple. LUNGS: Breath sounds equal, clear to auscultation bilaterally, no wheezes, no crackles, no accessory muscle use. HEART: Regular rate and rhythm, S1, S2 without murmur, rub or gallop. ABDOMEN: Soft, nontender, nondistended, normoactive bowel sounds, no guarding, no rebound, no hepatosplenomegaly, no masses. EXTREMITIES: 2+ pulses, warm, well-perfused, no edema. NEUROLOGICAL: Cranial nerves II through XII grossly intact. Normal speech, gait not observed. PSYCH: Normal mood, normal affect. SKIN: Warm, dry, normal turgor, no rashes or lesions noted. LABS Laboratory Results - last 24 hr 06/18/16 06/18/16 06:35 06:35 WBC 6.0 RBC 4.65 Hgb 12.6 Hct 37.8 MCV 81.4 MCHC 33.2 RDW 14.5 Plt Count 158 MPV 9.8 Neutrophils % 58.6 Lymphocytes % 26.0 D Monocytes % 13.0 H Eosinophils % 1.9 Basophils % 0.5 Sodium 143 Potassium 3.2 L Chloride 104 Carbon Dioxide 27 Anion Gap 12 BUN 13 Creatinine 1.1 H D Random Glucose 100 D Calcium 8.9 HOSPITAL COURSE: Date of Admission:06/15/16 Date of Discharge: 06/18/16 This is a 70 year old female with a history of HTN, anemia (no history of transfusions) and depression who presented to the ED today complaining of LLQ, diarrhea, and bright red blood in her stool x 4 today #Was admitted for acute colitis with hx of chills on Levaquin/Flagyl continue, GI consult appreciated patient went for colonscopy today as per 's notes who did the colonoscopy: GI Procedure NOte:. The patient was found to have right colon angiodysplasia and left colon diverticulosis but this self limited bleeding is felt to have come from her hemorrhoids. No ischemic colitis was seen. As per GI colonoscopy should be repeated in 5 years. Diet was advanced tolerated well . patient is being discharged home. # HTN Resume home Norvasc/HCTZ # Depression CONTINUE sERTALAZINE Minutes to complete discharge: 35 Discharge Summary Reason For Visit: RECTAL HEMORRHAGE; COLITIS Current Active Problems Colitis (Acute) DVT prophylaxis (Acute) Depression (Acute) HTN (hypertension) (Acute) Rectal bleed (Acute) Condition: Stable - Instructions Referrals: Chan Dent MD [Staff Physician] - Santhosh Hernandez MD [Primary Care Provider] - - Home Medications Comprehensive Discharge Medication List: Ambulatory Orders Amlodipine Besylate [Norvasc -] 5 mg PO DAILY 06/15/16 Atorvastatin Ca [Lipitor] 20 mg PO HS 06/15/16 Calcium 500Mg/Vit-D 200 Units [Os-Del 500+D -] 1 combo PO DAILY 06/15/16 Cyproheptadine Solution [Periactin Solution -] 2 mg PO Q12H 06/15/16 Hydrochlorothiazide [Hctz -] 12.5 mg PO DAILY 06/15/16 Omeprazole 20 mg PO BID 06/15/16 Quetiapine Fumarate [Seroquel -] 50 mg PO HS 06/15/16 Sertraline HCl 50 mg PO DAILY 06/15/16 This patient is new to me today: No Emergency Visit: Yes ED Registration Date: 06/15/16 Care time: The patient presented to the Emergency Department on the above date and was hospitalized for further evaluation of their emergent condition. Critical Care patient: No - Discharge Referral Referred to [facility] Med P.C.: No
[2016-06-18 19:27] VITALS: BP 159/79; PULSE 77; TEMP 98.5
--- NOTE | 2016-06-19 12:45 | PATH ---
Surgical Pathology Report Patient Name: CRICKET BERNABE Med. Rec. #: [id number] /Age/Gender: 1945 (Age: 70) / F Account: [id number] Location: [facility] MED/SURG Taken: 06/18/2016 Received: 06/18/2016 Reported: 06/19/2016 Physicians: Efren Garcia M.D. Specimen(s) Received RECTAL POLYP Clinical History Abdominal pain, abnormal CT scan, rectal bleed Diverticulosis, AVMs, polyp Final Diagnosis RECTUM, POLYP, BIOPSY: FRAGMENTS OF HYPERPLASTIC POLYP. Electronically Signed Austin Malone M.D. Gross Description Received in formalin, labeled "biopsy rectal polyp" are 2 lynch, irregular portions of soft tissue averaging 0.3 cm in greatest dimension. The specimens are submitted in toto in one cassette. 06/18/201606/18/2016
== END 2016-06-18 19:12 | disposition home or self-care (01) | DRG 254 ==
LOC: JER 12:05 → JERBED 17:00 → J7W 22:27
PROVIDERS: ADMIT Internal Medicine; ATTEND Internal Medicine
PROC: 0DBP8ZX Excision of Rectum, Via Natural or Artificial Opening Endoscopic, Diagnostic (ICD-10-PCS; principal; 2016-06-18 12:15)
DX: K64.8 Other hemorrhoids (principal); I10 Essential (primary) hypertension; K52.9 Noninfective gastroenteritis and colitis, unspecified; F32.9 Major depressive disorder, single episode, unspecified; Z72.0 Tobacco use; K57.90 Diverticulosis of intestine, part unspecified, without perforation or abscess without bleeding; M06.9 Rheumatoid arthritis, unspecified; K55.20 Angiodysplasia of colon without hemorrhage
CPT/HCPCS: 36415; 74177-TC; 80048; 80053; 81003; 81015; 82272; 83735; 85025; 85610; 86850; 86900; 86901; 87040; 88305-TC; 93005; 93010; 99283-25; Q9967

== ENCOUNTER 2016-12-25 17:16 | Observation (INO) | payer OTHER ==
[2016-12-25 17:21] VITALS: BMI 23.1
[2016-12-25 18:13] LABS: BASOPHIL 0.4 % (0-2.0); EOSINOPHIL 1.9 % (0-4.5); MCH 20.6 pg (25.7-33.7); MCHC 30.4 g/dl (32.0-36.0); MEAN CELL VOLUME 67.7 fl (80-96); MEAN PLT VOLUME 7.7 fl (7.5-11.1); NEUTROPHILS 54.8 % (42.8-82.8); PLATELET COUNT 258 K/MM3 (134-434); RDW 17.6 % (11.6-15.6); WHITE BLOOD COUNT 6.6 K/mm3 (4.0-10.0)
--- NOTE | 2016-12-25 18:15 | PDOC ---
History of Present Illness - General Chief Complaint: Pain Stated Complaint: PAIN Time Seen by Provider: 12/25/16 17:38 History Source: Patient Exam Limitations: No Limitations - History of Present Illness Initial Comments: 12/25/16 18:21 71-year-old female presents to the ED with complaints of generalized pins and needles to extremities worsening over the past 3 months. Patient also complains she is unable to sleep due to the above. Patient states was prescribed a medication approximately 8 days ago by her PCP but states started having palpitations after taking it. Patient denies any chest pain, shortness of breath , headache, visual changes, dizziness, itching, erythema, swelling, abdominal pain or nausea. Timing/Duration: constant Severity: moderate Associated Symptoms: denies: chest pain, shortness of breath, weakness Past History - Past Medical History Allergies/Adverse Reactions: Allergies Allergy/AdvReac Type Severity Reaction Status Date / Time No Known Allergies Allergy Verified 12/25/16 17:16 Home Medications: Ambulatory Orders Amlodipine Besylate [Norvasc -] 5 mg PO DAILY 06/15/16 Atorvastatin Calcium 20 mg PO DAILY 12/25/16 Bupropion HCl [Bupropion Xl] 150 mg PO BID 12/25/16 Alprazolam 1 mg PO HS PRN #5 tablet MDD 1 12/27/16 Ascorbic Acid [Vitamin C -] 500 mg PO DAILY #50 tablet 12/27/16 Docusate Sodium [Colace -] 100 mg PO BID #90 capsule 12/27/16 Ferrous Sulfate [Feosol] 325 mg PO TID #126 tablet 12/27/16 Pantoprazole Sodium [Protonix -] 40 mg PO DAILY #60 tab 12/27/16 Anemia: Yes HTN: Yes Hypercholesterolemia: Yes Other medical history: hemorrhoids - Immunization History Immunization Up to Date: Yes - Psycho/Social/Smoking Cessation Hx Anxiety: No Suicidal Ideation: No Smoking Status: Yes Smoking History: Current every day smoker Have you smoked in the past 12 months: Yes Number of Cigarettes Smoked Daily: 5 Cigars Per Day: 0 Information on smoking cessation initiated: Yes 'Breaking Loose' booklet given: 12/25/16 Hx Alcohol Use: No Drug/Substance Use Hx: No Substance Use Type: None Hx Substance Use Treatment: No Patient Lives Alone: No Review of Systems - Review of Systems Able to Perform ROS?: No Constitutional: No: Symptoms Reported HEENTM: No: Symptoms Reported Respiratory: No: Symptoms reported Cardiac (ROS): No: Symptoms Reported ABD/GI: No: Symptoms Reported : No: Symptoms Reported Musculoskeletal: No: Symptoms Reported Integumentary: No: Symptoms Reported Neurological: Yes: Tingling Hematologic/Lymphatic: No: Symptoms Reported *Physical Exam - Vital Signs Last Vital Signs Temp Pulse Resp BP Pulse Ox 98.7 F 68 18 153/69 100 12/25/16 17:18 12/25/16 17:18 12/25/16 17:18 12/25/16 17:18 12/25/16 17:18 - Physical Exam General Appearance: Yes: Nourished, Appropriately Dressed. No: Apparent Distress HEENT: positive: EOMI, FRANSISCO, Pale Conjunctivae Neck: positive: Supple Respiratory/Chest: positive: Lungs Clear, Normal Breath Sounds. negative: Respiratory Distress, Accessory Muscle Use Cardiovascular: positive: Regular Rhythm, Regular Rate. negative: Murmur Gastrointestinal/Abdominal: positive: Soft. negative: Tenderness Integumentary: positive: Dry, Warm Neurologic: positive: Motor Strength 5/5 (ambulatory). negative: Numbness, Sensory Deficit Deep Tendon Reflexes: Knee (L): 2+, Knee (R): 2+ ED Treatment Course - LABORATORY CBC & Chemistry Diagram: 12/27/16 07:00 12/27/16 07:00 Medical Decision Making - Medical Decision Making 12/25/16 18:04 Patient with complaints of tingling to the entire body for the past 3 months now causing her difficulty sleeping. Patient has no other complaints presently. Patient states history of hypertension and high cholesterol. Patient placed on medication unable to recall by her PCP and also has seen Dr. Burns who told her to follow-up in 3 months. Patient ordered for CBC, comp, and magnesium. We'll confirm medications with [facility]. 12/25/16 18:26 Called [facility] on [facility] and states patient has only been prescribed amlodipine, Motrin, and seroquel. 12/25/16 19:05 Laboratory Tests 12/25/16 12/25/16 18:00 18:00 Hgb 6.9 L* D Hct 22.6 L D MCV 67.7 L Chloride 108 H Anion Gap 2 L pt ordered type and screen along with stool for guaic testing. Pt ordered for 1 unit of blood 12/25/16 19:11 Laboratory Tests 12/25/16 18:30 Stool Occult Blood Negative *DC/Admit/Observation/Transfer Diagnosis at time of Disposition: Anemia - Discharge Dispostion Condition at time of disposition: Stable - Prescriptions - Referrals
[2016-12-25 18:42] LABS: ALBUMIN 3.7 g/dl (3.4-5.0); ALK PHOS 109 U/L (45-117); ANION GAP 2 (8-16); BILIRUBIN,TOTAL 0.2 mg/dL (0.2-1.0); CALCIUM 8.7 mg/dL (8.5-10.1); CO2 29 mmol/L (21-32); CREATININE 0.8 mg/dL (0.55-1.02); GLUCOSE,RANDOM 89 mg/dL (74-106); MAGNESIUM 2.3 mg/dL (1.8-2.4); SGOT/AST 19 U/L (15-37); SGPT/ALT 19 U/L (12-78)
[2016-12-25 18:51] LABS: INR 1.09 (0.82-1.09)
[2016-12-25 18:59] LABS: URINE APPEARANCE CLEAR; URINE BILIRUBIN NEGATIVE (NEGATIVE); URINE BLOOD 2+ (NEGATIVE); URINE COLOR LTYELLOW; URINE GLUCOSE (UA) NEGATIVE (NEGATIVE); URINE KETONE NEGATIVE (NEGATIVE); URINE NITRITE NEGATIVE (NEGATIVE); URINE PROTEIN NEGATIVE (NEGATIVE); URINE UROBILINOGEN NEGATIVE mg/dL (0.2-1.0)
[2016-12-25 19:09] LABS: URINE LEUK ESTERASE 1+ (NEGATIVE)
--- NOTE | 2016-12-25 19:46 | PDOC ---
*Physical Exam - Vital Signs Last Vital Signs Temp Pulse Resp BP Pulse Ox 98.7 F 68 18 153/69 100 12/25/16 17:18 12/25/16 17:18 12/25/16 17:18 12/25/16 17:18 12/25/16 17:18 ED Treatment Course - LABORATORY CBC & Chemistry Diagram: 12/25/16 18:00 12/25/16 18:00 - ADDITIONAL ORDERS Additional order review: Laboratory Results 12/25/16 12/25/16 12/25/16 18:40 18:30 18:28 INR Sodium Potassium Chloride Carbon Dioxide Anion Gap BUN Creatinine Creat Clearance w eGFR Random Glucose Calcium Magnesium Total Bilirubin AST ALT Alkaline Phosphatase Total Protein Albumin Urine Color Ltyellow Urine Appearance Clear Urine pH 5.0 D Urine Protein Negative Urine Glucose (UA) Negative Urine Ketones Negative Urine Blood 2+ H Urine Nitrite Negative Urine Bilirubin Negative Urine Urobilinogen Negative Ur Leukocyte Esterase 1+ H Stool Occult Blood Negative Crossmatch See Detail 12/25/16 12/25/16 18:28 18:00 INR 1.09 Sodium 139 Potassium 4.0 D Chloride 108 H Carbon Dioxide 29 Anion Gap 2 L BUN 13 Creatinine 0.8 D Creat Clearance w eGFR > 60 Random Glucose 89 Calcium 8.7 Magnesium 2.3 Total Bilirubin 0.2 D AST 19 ALT 19 Alkaline Phosphatase 109 Total Protein 7.0 Albumin 3.7 Urine Color Urine Appearance Urine pH Urine Protein Urine Glucose (UA) Urine Ketones Urine Blood Urine Nitrite Urine Bilirubin Urine Urobilinogen Ur Leukocyte Esterase Stool Occult Blood Crossmatch 12/25/16 18:00 RBC 3.34 L D MCV 67.7 L MCHC 30.4 L RDW 17.6 H D MPV 7.7 D Neutrophils % 54.8 Lymphocytes % 31.8 D Monocytes % 11.1 H Eosinophils % 1.9 Basophils % 0.4 Medical Decision Making - Medical Decision Making 12/25/16 20:02 patient converted to ED obs. will give 1 unit of prbc and reevaluate. 12/25/16 21:02 patient with history of GI bleed from hemorrhoids. and macrocytic anemia. plan to reevaluate after 1 unit prbc. patient needs to follow up with GI for outpatient work up including colonoscopy. 12/25/16 21:42 patient status converted to obs *DC/Admit/Observation/Transfer Diagnosis at time of Disposition: Anemia Qualifiers: Anemia type: iron deficiency Iron deficiency anemia type: chronic blood loss Qualified Code(s): D50.0 - Iron deficiency anemia secondary to blood loss ( chronic) - Discharge Dispostion Admit: Yes - Referrals Referrals: Santhosh Hernandez MD [Primary Care Provider] - - Patient Instructions - Post Discharge Activity
[2016-12-25 20:14] LABS: CALCIUM OXALATE CRYSTALS RARE /hpf (NONE SEEN); URINE MUCUS RARE; URINE RBC 3 /hpf (0-3); URINE WBC 3 /hpf (3-5)
--- NOTE | 2016-12-25 21:48 | PN ---
Teaching Attending Note Name of Resident: Emely De Leon ATTENDING PHYSICIAN STATEMENT I saw and evaluated the patient. I reviewed the resident's note and discussed the case with the resident. I agree with the resident's findings and plan as documented. SUBJECTIVE: 71 yo F with pmhx of HTN, hemmoriodal bleed, who presents with palpitations and pins and needles to extremities. Denies any vaginal or rectal bleeding. No current chest pain, pressure or palpitations OF Note: Recent Colonoscopy done 06/15- Found to have R. Colon Angiodysplasia and L. Colon Diverticulitis OBJECTIVE: Physical: VS: Vital Signs Period Temp Pulse Resp BP Sys/Fatima Pulse Ox Last 24 Hr 98.2 F-98.7 F 66-82 16-18 151-165/48-72 100-100 GEN: NAD, Resting in bed HEENT: NCAT, PERRL, Throat without erythema or exudates CARD: RRR S1, S2 RESP: CTAB ABD: BSX4, NTD to palpation EXT: - C/C/E RECTAL: Deferred CBCD WBC 6.6 K/mm3 (4.0-10.0) 12/25/16 18:00 RBC 3.34 M/mm3 (3.60-5.2) L D 12/25/16 18:00 Hgb 6.9 GM/dL (10.7-15.3) L* D 12/25/16 18:00 Hct 22.6 % (32.4-45.2) L D 12/25/16 18:00 MCV 67.7 fl (80-96) L 12/25/16 18:00 MCHC 30.4 g/dl (32.0-36.0) L 12/25/16 18:00 RDW 17.6 % (11.6-15.6) H D 12/25/16 18:00 Plt Count 258 K/MM3 (134-434) D 12/25/16 18:00 MPV 7.7 fl (7.5-11.1) D 12/25/16 18:00 CMP Sodium 139 mmol/L (136-145) 12/25/16 18:00 Potassium 4.0 mmol/L (3.5-5.1) D 12/25/16 18:00 Chloride 108 mmol/L (98-107) H 12/25/16 18:00 Carbon Dioxide 29 mmol/L (21-32) 12/25/16 18:00 Anion Gap 2 (8-16) L 12/25/16 18:00 BUN 13 mg/dL (7-18) 12/25/16 18:00 Creatinine 0.8 mg/dL (0.55-1.02) D 12/25/16 18:00 Creat Clearance w eGFR > 60 (>60) 12/25/16 18:00 Random Glucose 89 mg/dL (74-106) 12/25/16 18:00 Calcium 8.7 mg/dL (8.5-10.1) 12/25/16 18:00 Total Bilirubin 0.2 mg/dL (0.2-1.0) D 12/25/16 18:00 AST 19 U/L (15-37) 12/25/16 18:00 ALT 19 U/L (12-78) 12/25/16 18:00 Alkaline Phosphatase 109 U/L (45-117) 12/25/16 18:00 Total Protein 7.0 g/dl (6.4-8.2) 12/25/16 18:00 Albumin 3.7 g/dl (3.4-5.0) 12/25/16 18:00 Urine Test Results Urine Color Ltyellow 12/25/16 18:40 Urine Appearance Clear 12/25/16 18:40 Urine pH 5.0 (5.0-8.0) D 12/25/16 18:40 Ur Specific [place] 1.015 (1.005-1.025) 12/25/16 18:40 Urine Protein Negative (NEGATIVE) 12/25/16 18:40 Urine Glucose (UA) Negative (NEGATIVE) 12/25/16 18:40 Urine Ketones Negative (NEGATIVE) 12/25/16 18:40 Urine Blood 2+ (NEGATIVE) H 12/25/16 18:40 Urine Nitrite Negative (NEGATIVE) 12/25/16 18:40 Urine Bilirubin Negative (NEGATIVE) 12/25/16 18:40 Ur Leukocyte Esterase 1+ (NEGATIVE) H 12/25/16 18:40 Urine RBC 3 /hpf (0-3) 12/25/16 18:40 Urine WBC 3 /hpf (3-5) 12/25/16 18:40 Ur Epithelial Cells Rare /hpf (FEW) 12/25/16 18:40 Urine Mucus Rare 12/25/16 18:40 ASSESSMENT AND PLAN: 71 F with HTN, Anemia, hemmoriodal bleed, diverticulosis who presented with palpiations and peripheral neuropathy 1.) Anemia- Microcytic - 1U Prbc - Goal HgB >7.0 - Fe studies - Needs TODD for MM outpt and repeat GI eval outpt. 2.) HTN - C/W Home Meds 3.) Depression - C/W Sertraline 4.) Neuropathy - Chk. A1c - Considet C/T spine Ct if not improvement - Can consider Gabapentin 4.) Dvt Ppx - Low Risk - SCD Place in OBS
[2016-12-25] MEDS: ATORVASTATIN CA 20 MG TABLET (FP) PO SCH (22:53)
[2016-12-25] MEDS ORDERED: PT OWN MED DRAWER 7, Y5N ONE (23:52)
[2016-12-26 00:09] LABS: HYPOCHROMIA 2+; PLATELET COMMENT2 NO CLOTTING DETECTED; PLATELET ESTIMATE ADEQUATE (NORMAL); POIKILOCYTOSIS 1+; POLYCHROMASIA 1+
[2016-12-26 00:10] LABS: ANISOCYTOSIS 2+; MICROCYTOSIS 3+
--- NOTE | 2016-12-26 00:15 | HP ---
CHIEF COMPLAINT: Paresthesias HISTORY OF PRESENT ILLNESS: Pt is a 71yo F with PMHx of Internal hemorrhoids, Anemia, PRN NSAID use for pain who presented to the ER with complaints of whole body paresthesias. She stated that she has had these paresthesias for a couple of months, but decided to come today because it was not going away. In the ER she was found to have a hemoglobin of 6.9. She has no hematochezia, no dark stool, no hemoptysis, no hematuria, no epistaxis. She has no CP, but recently described palpitations and SOB on exertion for the past week. She was recently seen in the hospital for hemorrhoidal bleeding in May 2016. She received a colonoscopy at that time which showed internal hemorrhoids, scattered diverticulosis, and R colonic angiodysplasia. Upper endoscopy at that time was notable for mild gastritis. ER course was notable for: (1) CBC - Hgb 6.9 with low MCV. (2) EKG - NSR (3) Stool guiac negative (4) Started 1u PRBC PAST MEDICAL HISTORY: Anemia, Internal Hemorrhoids, HTN, HLD, MDD Social History: Smoking: Current smoker, 10-15 cigarettes a day Alcohol: Denies Drugs: Denies Family History: No FHx of CRC Allergies No Known Allergies Allergy (Verified 12/25/16 17:16) HOME MEDICATIONS: Home Medications Medication Instructions Recorded Amlodipine Besylate [Norvasc -] 5 mg PO DAILY 06/15/16 Atorvastatin Calcium 20 mg PO DAILY 12/25/16 Bupropion HCl [Bupropion Xl] 150 mg PO BID 12/25/16 Naproxen [Naprosyn -] 500 mg PO DAILY PRN 12/25/16 REVIEW OF SYSTEMS CONSTITUTIONAL: Absent: fever, chills, diaphoresis, generalized weakness, malaise, loss of appetite, weight change HEENT: Absent: rhinorrhea, nasal congestion, throat pain, throat swelling, difficulty swallowing, mouth swelling, ear pain, eye pain, visual changes CARDIOVASCULAR: Absent: chest pain, syncope, palpitations, irregular heart rate, lightheadedness , peripheral edema RESPIRATORY: Absent: cough, shortness of breath, dyspnea with exertion, orthopnea, wheezing, stridor, hemoptysis GASTROINTESTINAL: Absent: abdominal pain, abdominal distension, nausea, vomiting, diarrhea, constipation, melena, hematochezia GENITOURINARY: Absent: dysuria, frequency, urgency, hesitancy, hematuria, flank pain, genital pain MUSCULOSKELETAL: Absent: myalgia, arthralgia, joint swelling, back pain, neck pain SKIN: Absent: rash, itching, pallor HEMATOLOGIC/IMMUNOLOGIC: Absent: easy bleeding, easy bruising, lymphadenopathy, frequent infections ENDOCRINE: Absent: unexplained weight gain, unexplained weight loss, heat intolerance, cold intolerance NEUROLOGIC: Absent: headache, focal weakness or paresthesias, dizziness, unsteady gait, seizure, mental status changes, bladder or bowel incontinence Present: paresthesias PSYCHIATRIC: Absent: anxiety, depression, suicidal or homicidal ideation, hallucinations. PHYSICAL EXAMINATION Vital Signs - 24 hr 12/25/16 12/25/16 12/25/16 20:05 20:40 20:57 Temperature 98.2 F 98.4 F 98.5 F Pulse Rate [ 82 66 68 Left Radial] Respiratory 18 17 16 Rate Blood Pressure 165/72 151/48 161/58 [Right Arm] O2 Sat by Pulse 100 100 100 Oximetry (%) GEN: AAOx3, NAD, sitting comfortable HEENT: PERRLA, EOMi, no cervical LAD CV: S1, S2, RRR, 2/6 systolic murmur in RUSB LUNG: CTABL ABD: Soft, NT, ND, normoactive BS MSK: Normal ROM, no erythema, no edema NEURO: CN 2-12, no sensation deficits, MSK 5/5, reflexes 2+ Laboratory Last Values WBC 6.6 K/mm3 (4.0-10.0) 12/25/16 18:00 RBC 3.34 M/mm3 (3.60-5.2) L D 12/25/16 18:00 Hgb 6.9 GM/dL (10.7-15.3) L* D 12/25/16 18:00 Hct 22.6 % (32.4-45.2) L D 12/25/16 18:00 MCV 67.7 fl (80-96) L 12/25/16 18:00 MCH 20.6 pg (25.7-33.7) L 12/25/16 18:00 MCHC 30.4 g/dl (32.0-36.0) L 12/25/16 18:00 RDW 17.6 % (11.6-15.6) H D 12/25/16 18:00 Plt Count 258 K/MM3 (134-434) D 12/25/16 18:00 MPV 7.7 fl (7.5-11.1) D 12/25/16 18:00 Neutrophils % 54.8 % (42.8-82.8) 12/25/16 18:00 Lymphocytes % 31.8 % (8-40) D 12/25/16 18:00 Monocytes % 11.1 % (3.8-10.2) H 12/25/16 18:00 Eosinophils % 1.9 % (0-4.5) 12/25/16 18:00 Basophils % 0.4 % (0-2.0) 12/25/16 18:00 Hypochromia 2+ 12/25/16 18:00 Platelet Estimate Adequate (NORMAL) 12/25/16 18:00 Platelet Comment No clumping noted 12/25/16 18:00 Platelet Comment No clotting detected 12/25/16 18:00 Polychromasia 1+ 12/25/16 18:00 Poikilocytosis 1+ 12/25/16 18:00 Anisocytosis 2+ 12/25/16 18:00 Microcytosis 3+ 12/25/16 18:00 Fragmented RBCs 1+ 12/25/16 18:00 INR 1.09 (0.82-1.09) 12/25/16 18:28 Sodium 139 mmol/L (136-145) 12/25/16 18:00 Potassium 4.0 mmol/L (3.5-5.1) D 12/25/16 18:00 Chloride 108 mmol/L (98-107) H 12/25/16 18:00 Carbon Dioxide 29 mmol/L (21-32) 12/25/16 18:00 Anion Gap 2 (8-16) L 12/25/16 18:00 BUN 13 mg/dL (7-18) 12/25/16 18:00 Creatinine 0.8 mg/dL (0.55-1.02) D 12/25/16 18:00 Creat Clearance w eGFR > 60 (>60) 12/25/16 18:00 Random Glucose 89 mg/dL (74-106) 12/25/16 18:00 Calcium 8.7 mg/dL (8.5-10.1) 12/25/16 18:00 Magnesium 2.3 mg/dL (1.8-2.4) 12/25/16 18:00 Total Bilirubin 0.2 mg/dL (0.2-1.0) D 12/25/16 18:00 AST 19 U/L (15-37) 12/25/16 18:00 ALT 19 U/L (12-78) 12/25/16 18:00 Alkaline Phosphatase 109 U/L (45-117) 12/25/16 18:00 Total Protein 7.0 g/dl (6.4-8.2) 12/25/16 18:00 Albumin 3.7 g/dl (3.4-5.0) 12/25/16 18:00 Urine Color Ltyellow 12/25/16 18:40 Urine Appearance Clear 12/25/16 18:40 Urine pH 5.0 (5.0-8.0) D 12/25/16 18:40 Ur Specific Everetts 1.015 (1.005-1.025) 12/25/16 18:40 Urine Protein Negative (NEGATIVE) 12/25/16 18:40 Urine Glucose (UA) Negative (NEGATIVE) 12/25/16 18:40 Urine Ketones Negative (NEGATIVE) 12/25/16 18:40 Urine Blood 2+ (NEGATIVE) H 12/25/16 18:40 Urine Nitrite Negative (NEGATIVE) 12/25/16 18:40 Urine Bilirubin Negative (NEGATIVE) 12/25/16 18:40 Urine Urobilinogen Negative mg/dL (0.2-1.0) 12/25/16 18:40 Ur Leukocyte Esterase 1+ (NEGATIVE) H 12/25/16 18:40 Urine RBC 3 /hpf (0-3) 12/25/16 18:40 Urine WBC 3 /hpf (3-5) 12/25/16 18:40 Ur Epithelial Cells Rare /hpf (FEW) 12/25/16 18:40 Calcium Oxalate Crystal Rare /hpf (NONE SEEN) 12/25/16 18:40 Urine Mucus Rare 12/25/16 18:40 Stool Occult Blood Negative (NEGATIVE) 12/25/16 18:30 Blood Type A POSITIVE 12/25/16 18:28 Antibody Screen Negative 12/25/16 18:28 Crossmatch See Detail 12/25/16 18:28 Home Medication List Medication Instructions Recorded Confirmed Type Amlodipine Besylate [Norvasc -] 5 mg PO DAILY 06/15/16 12/25/16 History Atorvastatin Calcium 20 mg PO DAILY 12/25/16 12/25/16 History Bupropion HCl [Bupropion Xl] 150 mg PO BID 12/25/16 12/25/16 History Naproxen [Naprosyn -] 500 mg PO DAILY PRN 12/25/16 12/25/16 History Active Medications Generic Name Dose Route Start Last Admin Trade Name Jasmeet PRN Reason Stop Dose Admin Amlodipine Besylate 5 mg 12/26/16 10:00 Norvasc - PO DAILY MU Atorvastatin Calcium 20 mg 12/25/16 22:00 12/25/16 22:53 Lipitor - PO 20 mg HS MU Administration Bupropion HCl 150 mg 12/25/16 23:30 Wellbutrin Xl - PO BID MU ASSESSMENT/PLAN: Pt is a 71yo F with PMHx of hemorrhoidal bleeds and anemia without current GI bleed who presented with microcytic anemia. # Microcytic Anemia - Hold NSAIDs - Getting 1u PRBC - Repeat CBC 1 hour after transfusion - F/u Fe studies - Pt needs outpt GI followup and MM workup # Paresthesias - No known hx of DM2 - A1C ordered - Consider Gabapentin # HTN - Continue Amlodipine 5mg QD # HLD - Continue Atorvastatin 20mg QD # Hx of Depression - Continue Buproprion XR BID # FEN - Fluids: None needed - Electrolytes: No abnormalities - Nutrition: Sodium controlled diet # Prophylaxis - DVT: Low risk, SCDs - GI: Not indicated - Deconditioning: PT not needed, pt is ambulatory # Disposition - Admit to obs - Pt needs o/p GI f/u - Pt needs o/p Multiple Myeloma workup Visit type - Emergency Visit Emergency Visit: Yes ED Registration Date: 12/25/16 Care time: The patient presented to the Emergency Department on the above date and was hospitalized for further evaluation of their emergent condition. - New Patient This patient is new to me today: Yes Date on this admission: 12/26/16 - Critical Care Critical Care patient: No
[2016-12-26 03:35] LABS: MCH 21.7 pg (25.7-33.7); MEAN PLT VOLUME 8.8 fl (7.5-11.1); PLATELET COUNT 246 K/MM3 (134-434); RDW 19.5 % (11.6-15.6); WHITE BLOOD COUNT 7.1 K/mm3 (4.0-10.0)
[2016-12-26 08:31] LABS: ANION GAP 7 (8-16); CALCIUM 8.6 mg/dL (8.5-10.1); CO2 27 mmol/L (21-32); CREATININE 0.7 mg/dL (0.55-1.02); GLUCOSE,RANDOM 83 mg/dL (74-106)
[2016-12-26] MEDS ORDERED: PT OWN MED DRAWER 7, Y5N ONE ×2 (09:41→21:54)
[2016-12-26] MEDS: amLODIPine BESYLATE 5 MG TABLET (FP) PO SCH (09:44)
--- NOTE | 2016-12-26 10:57 | CON.GI ---
Consult Consult Specialty:: GI - For Dr. Dent Referred by:: Hospitalist Service Reason for Consultation:: Anemia - History of Present Illness Chief Complaint: [email or web address] Twister Doffer [id number] History of Present Illness: 71F admitted through [facility] ER for evaluation of restlessness. Per Ms. Lockett, the reason why she came to the hospital was because "she could not sleep well over the last 2 months and felt her body jumping during the day." In ER, vitals were stable, hgb was noted to be 6.9 and was admitted for further evaluation of anemia. Of note she was evaluated 06/15 by myself for abdominal pain and rectal bleeding. She underwent colonoscopy with Dr. Garcia during that admission revealing angiodysplasias in the proximal colon and diverticulosis. She is a patient of Dr. Dent and she had undergone both colonoscopy and upper endoscopy with him 11/28/15: Colon = proximal colon AVM's, mild scattered diverticulosis and internal hemorrhoids. EGD = mild gastritis. She denies abdominal pain, diarrhea, rectal bleeding, melena, vaginal bleeding, unintentional weight loss. She takes naprosyn every three days for aches/pains and headaches. Ferritin noted to be 5 on admission and guaiac negative on specimen sent to the lab. No family history of colorectal cancer or other Gi malignancy - History Source History Provided By: Patient, Medical Record Limitations to Obtaining History: No Limitations - Past Medical History Cardio/Vascular: Yes: HTN Psych: Yes: Depression Rheumatology: Yes: Rheumatoid Arthritis Endocrine: Yes: Other (osteoporosis) - Past Surgical History Past Surgical History: Yes: Cataract Removal (bilaterally), , Tubal Ligation - Alcohol/Substance Use Hx Alcohol Use: No History of Substance Use: reports: None - Smoking History Smoking history: Current every day smoker Have you smoked in the past 12 months: Yes Aproximately how many cigarettes per day: 5 - Social History Usual Living Arrangement: Alone ADL: Independent 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 Place of : Other ([place]) History of Recent Travel: Yes ([place] 2 months ago) Home Medications - Allergies Allergies/Adverse Reactions: Allergies Allergy/AdvReac Type Severity Reaction Status Date / Time No Known Allergies Allergy Verified 12/25/16 17:16 - Home Medications Home Medications: Ambulatory Orders Amlodipine Besylate [Norvasc -] 5 mg PO DAILY 06/15/16 Atorvastatin Calcium 20 mg PO DAILY 12/25/16 Bupropion HCl [Bupropion Xl] 150 mg PO BID 12/25/16 Naproxen [Naprosyn -] 500 mg PO DAILY PRN 12/25/16 Family Disease History - Family Disease History Family Disease History: Other: Father (: 70: unknown causes), Mother (: 78: asthma complications), Brother (4: healthy), Sister (3: healthy), Daughter ( 5 daughters, healthy) Other Family History: No family history of colorectal cancer or other GI malignancy Review of Systems - Review of Systems Constitutional: denies: Chills Cardiovascular: denies: Chest Pain Respiratory: denies: SOB Gastrointestinal: reports: Constipation (occasional). denies: Abdominal Pain, Bloating, Diarrhea, Dysphagia, Indigestion, Melena, Nausea, Rectal Bleeding, Vomiting Physical Exam-GI Vital Signs: Vital Signs Temperature 98.1 F 12/26/16 08:15 Pulse Rate 66 12/26/16 08:15 Respiratory Rate 18 12/26/16 08:15 Blood Pressure 148/58 12/26/16 08:15 O2 Sat by Pulse Oximetry (%) 99 12/25/16 23:04 Constitutional: Yes: Calm Eyes: No: Sclera Icterus Cardiovascular: Yes: Regular Rate and Rhythm, Murmur (+ 2/6 systolic murmur at the RSB) Respiratory: Yes: CTA Bilaterally Gastrointestinal Inspection: Yes: Scars (pelvic surgical scar). No: Distention ...Auscultate: Yes: Normoactive Bowel Sounds ...Palpate: Yes: Soft, Tenderness (Mild TTP left paramedian abdomen). No: Guarding, Hepatomegaly, Splenomegaly, Tenderness, Rebound ...Percussion: No: Tympanitic ...Rectal Exam: Yes: Other (Colliery Clerk present: no external lesions, light brown stool in rectal vault that was guaiac negative. No masses.) Edema: No (No LE edema) Neurological: Yes: Alert, Oriented Labs: CBC, BMP 12/26/16 03:00 12/26/16 07:40 INR, PTT INR 1.09 (0.82-1.09) 12/25/16 18:28 Hepatic Panel Total Bilirubin 0.2 mg/dL (0.2-1.0) D 12/25/16 18:00 AST 19 U/L (15-37) 12/25/16 18:00 ALT 19 U/L (12-78) 12/25/16 18:00 Alkaline Phosphatase 109 U/L (45-117) 12/25/16 18:00 Albumin 3.7 g/dl (3.4-5.0) 12/25/16 18:00 Problem List - Problems (1) Anemia Assessment/Plan: Guaiac negative x 2 this admission without history of overt GI blood loss. The anemia is microcytic and ferritin is 5, suggesting component of iron deficiency however ? if concomitant hematologic pathology could be contributing Advised the following: Celiac serologies Hematology evaluation Stool for O&P W/U of heart murmur per primary team Discussed EGD with Ms. Lockett. Discussed potential risks of the procedure like but not limited to bleeding, perforation requiring surgery to repair, infection and sedation medication effects all of which could be potentially life threatening. She has agreed to the procedure If unrevealing, will likely need capsule endoscopy as an outpatient for which she can follow-up with Dr. Dent. I explained this to Ms. Lockett as well. Code(s): D64.9 - ANEMIA, UNSPECIFIED Qualifiers: Anemia type: iron deficiency Iron deficiency anemia type: chronic blood loss Qualified Code(s): D50.0 - Iron deficiency anemia secondary to blood loss (chronic) (2) Microcytic anemia Code(s): D50.9 - IRON DEFICIENCY ANEMIA, UNSPECIFIED
[2016-12-26 11:42] LABS: BASOPHIL 0.6 % (0-2.0); EOSINOPHIL 1.5 % (0-4.5); MCH 21.4 pg (25.7-33.7); MCHC 30.4 g/dl (32.0-36.0); MEAN CELL VOLUME 70.6 fl (80-96); MEAN PLT VOLUME 9.4 fl (7.5-11.1); NEUTROPHILS 62.1 % (42.8-82.8); PLATELET COUNT 229 K/MM3 (134-434); WHITE BLOOD COUNT 6.4 K/mm3 (4.0-10.0)
--- NOTE | 2016-12-26 11:53 | EKG ---
Test Reason : Blood Pressure : / mmHG Vent. Rate : 075 BPM Atrial Rate : 075 BPM P-R Int : 136 ms QRS Dur : 080 ms QT Int : 412 ms P-R-T Axes : 078 070 069 degrees QTc Int : 460 ms NORMAL SINUS RHYTHM NORMAL ECG WHEN COMPARED WITH ECG OF 15-JUN-2016 14:02, NO SIGNIFICANT CHANGE WAS FOUND Confirmed by BILLY SORENSEN MD ([id number]) on 12/26/2016 11:53:15 AM Referred By: Confirmed By:BILLY SORENSEN MD
--- NOTE | 2016-12-26 16:29 | PN ---
Physical Exam: SUBJECTIVE: Patient seen and examined. She states she r bunion tenderness and ankle pain. Often intermittent pain with walking but gets better with iron. OBJECTIVE: Vital Signs Period Temp Pulse Resp BP Sys/Fatima Pulse Ox Last 24 Hr 98.1 F-99.6 F 62-82 16-18 140-165/48-82 99-100 PE Neuro: alert, awake, cn 2-12intact Pulm: CTAB CV: s1 s2 rrr systolic murmur 2/6 Abd: s nt nd +bs Ext: no le edema, warm Laboratory Results - last 24 hr 12/26/16 12/26/16 12/26/16 03:00 07:40 07:45 WBC 7.1 RBC 4.13 D Hgb 9.0 L D Hct 28.9 L D MCV 70.0 L MCH 21.7 L MCHC 31.0 L RDW 19.5 H D Plt Count 246 MPV 8.8 D Neutrophils % Lymphocytes % Monocytes % Eosinophils % Basophils % Retic Count 1.54 H Sodium 141 Potassium 3.8 Chloride 107 Carbon Dioxide 27 Anion Gap 7 L BUN 9 D Creatinine 0.7 Random Glucose 83 Calcium 8.6 Vitamin B12 Serum Folate 12/26/16 12/26/16 07:45 11:36 WBC 6.4 RBC 3.86 Hgb 8.3 L Hct 27.2 L MCV 70.6 L MCH 21.4 L MCHC 30.4 L RDW 19.0 H Plt Count 229 MPV 9.4 Neutrophils % 62.1 Lymphocytes % 26.0 Monocytes % 9.8 Eosinophils % 1.5 Basophils % 0.6 Retic Count Sodium Potassium Chloride Carbon Dioxide Anion Gap BUN Creatinine Random Glucose Calcium Vitamin B12 268 Serum Folate 19 H Active Medications Generic Name Dose Route Start Last Admin Trade Name Freq PRN Reason Stop Dose Admin Amlodipine Besylate 5 mg 12/26/16 10:00 12/26/16 09:44 Norvasc - PO 5 mg DAILY MU Administration Atorvastatin Calcium 20 mg 12/25/16 22:00 12/25/16 22:53 Lipitor - PO 20 mg HS MU Administration Bupropion HCl 150 mg 12/25/16 23:30 12/26/16 09:44 Wellbutrin Xl - PO 150 mg BID MU Administration Dextrose/Sodium Chloride 1,000 mls @ 75 mls/hr 12/27/16 00:01 D5-1/2ns - IV ASDIR MU Assessment: 71 year old female admitted with acute blood loss anemia Plan: 1. Acute blood loss anemia - Repeat cbc this afternoon down - Guiac negative - EGD tomorrow - Iron studies pending, low ferritin, likely iron deficient - O&P stool ordered - celiac studies ordered - Corrected retic .85 - Previous UA's with microscopic hematuria, +2, will need urology evaluation with cystoscopy afer EGD - GI seeing 2. Peripheral neuropathy vs myalgia from meds - Possible due to norvasc/lipitor however pain reportedly arthritic in description vs symptomatic anemia - Folate level elevated - B12 wnl 3. Nutrition - NPO after midnight, start d5 1/2ns for procedure Visit type - Emergency Visit Emergency Visit: Yes ED Registration Date: 12/25/16 Care time: The patient presented to the Emergency Department on the above date and was hospitalized for further evaluation of their emergent condition. - New Patient This patient is new to me today: Yes Date on this admission: 12/28/16 - Critical Care Critical Care patient: No
[2016-12-26] MEDS: ATORVASTATIN CA 20 MG TABLET (FP) PO SCH (22:05)
[2016-12-27] MEDS ORDERED: DEXTROSE 5%-0.45% SALINE 1,000 ML IV SCH (00:01)
[2016-12-27 06:06] LABS: SERUM IRON 13 ug/dL (27-139); TOTAL IRON BINDING CAPACITY 377 ug/dL (250-450); UIBC 364 ug/dL (118-369)
[2016-12-27 08:41] LABS: BASOPHIL 0.7 % (0-2.0); EOSINOPHIL 2.9 % (0-4.5); MCH 21.4 pg (25.7-33.7); MCHC 30.5 g/dl (32.0-36.0); MEAN CELL VOLUME 70.2 fl (80-96); MEAN PLT VOLUME 8.9 fl (7.5-11.1); NEUTROPHILS 53.8 % (42.8-82.8); PLATELET COUNT 239 K/MM3 (134-434); WHITE BLOOD COUNT 4.2 K/mm3 (4.0-10.0)
[2016-12-27 09:03] LABS: ANION GAP 5 (8-16); CALCIUM 8.9 mg/dL (8.5-10.1); CO2 28 mmol/L (21-32); CREATININE 0.8 mg/dL (0.55-1.02); GLUCOSE,RANDOM 84 mg/dL (74-106)
--- NOTE | 2016-12-27 09:31 | PN ---
Progress Note (short form) - Note Progress Note: EGD complete. report left in procedural section of physical chart and to be scanned into [facility] Problem List - Problems (1) Anemia Code(s): D64.9 - ANEMIA, UNSPECIFIED Qualifiers: Anemia type: iron deficiency Iron deficiency anemia type: chronic blood loss Qualified Code(s): D50.0 - Iron deficiency anemia secondary to blood loss (chronic) (2) Microcytic anemia Code(s): D50.9 - IRON DEFICIENCY ANEMIA, UNSPECIFIED
[2016-12-27] MEDS ORDERED: PANTOPRAZOLE 40 MG TABLET (FP) PO SCH (10:00)
[2016-12-27] MEDS ORDERED: PT OWN MED DRAWER 7, Y5N ONE (10:44)
[2016-12-27] MEDS: amLODIPine BESYLATE 5 MG TABLET (FP) PO SCH (10:47)
--- NOTE | 2016-12-27 11:15 | EKG ---
Test Reason : Blood Pressure : / mmHG Vent. Rate : 067 BPM Atrial Rate : 067 BPM P-R Int : 130 ms QRS Dur : 074 ms QT Int : 420 ms P-R-T Axes : -87 063 060 degrees QTc Int : 443 ms NORMAL SINUS RHYTHM Confirmed by OSMIN WADE MD ([id number]) on 12/27/2016 11:15:40 AM Referred By: JEAN CARLOS CONNER Confirmed By:OSMIN WADE MD
[2016-12-27] MEDS ORDERED: IRON SUCROSE INJECTION 200 MG in SODIUM CHLORIDE 100 ML IVPB ONE (14:50)
--- NOTE | 2016-12-27 15:02 | DS ---
Physical Exam: SUBJECTIVE: Patient seen and examined OBJECTIVE: Vital Signs Period Temp Pulse Resp BP Sys/Fatima Pulse Ox Last 24 Hr 97.2 F-98.5 F 61-74 16-20 90-150/43-65 98-100 PE Neuro: alert, awake, cn 2-12intact Pulm: CTAB CV: s1 s2 rrr systolic murmur 06/04 Abd: s nt nd +bs Ext: no le edema, warm Laboratory Results - last 24 hr 12/27/16 12/27/16 07:00 07:00 WBC 4.2 D RBC 3.88 Hgb 8.3 L Hct 27.2 L MCV 70.2 L MCH 21.4 L MCHC 30.5 L RDW 19.0 H Plt Count 239 MPV 8.9 Neutrophils % 53.8 Lymphocytes % 30.2 Monocytes % 12.4 H Eosinophils % 2.9 D Basophils % 0.7 Sodium 141 Potassium 3.7 Chloride 108 H Carbon Dioxide 28 Anion Gap 5 L BUN 8 Creatinine 0.8 Random Glucose 84 Calcium 8.9 HOSPITAL COURSE: Date of Admission:12/25/16 Date of Discharge: 12/27/16 Minutes to complete discharge: 37 Discharge Summary Reason For Visit: ANEMIA Current Active Problems Anemia (Acute) Microcytic anemia (Acute) Hospital Course: Initial Hospital Course: Briefly, 71 year old female with PMHx of Internal hemorrhoids, Anemia, PRN NSAID use for pain who presented with complaints of whole body paresthesias. She stated that she has had these paresthesias for a couple of months, but decided to come today because it was not going away and she has been unable to sleep for 2 months. While in the ED her hgb was found to be 6.9. Denied hematochezia, melena, hematuria, epistaxis, chest pain. For the week before she did have some palpitations and sob on exertion. In 05/2016 was admitted for hemorrhoidal bleeding She received a colonoscopy at that time which showed internal hemorrhoids, scattered diverticulosis, and R colonic angiodysplasia. Upper endoscopy at that time was notable for mild gastritis. Subsequent Hospital Course/Progress Note/Discharge Summary: Plan: 1. Acute blood loss anemia -EGD showing iron deficiency anemia, unspecified, gastric ulcer no hemorrhage or perforation -Iron studies noted, venofer infusion 200mg x1 -Home with ferrous sulfate TID, colace, vitamin C and instructions to follow up with PCP for continued mgmt, hematology referral enclosed -Protonix 40mg x 8 weeks -Discontinue is use of NSAIDS -Celiac studies ordered- given instructions to follow up with Dr. Dent for further work up and capsule study - Previous UA's with microscopic hematuria, +2, will need urology evaluation with cystoscopy - urology referral enclosed in dc instructions and with pt she is aware 2. Peripheral neuropathy vs myalgias - Discussed at length the "paraesthesia" pt feels. She reports she has anxiety, nervousness, and difficulty sleeping and has run out of her medication "alplax" that she gets from [place] in [place] [facility], this was also her primary reason for coming to the hospital. However, she knows it worsens with her anemia - Psych referral offered to pt, she refused, said she was referred in the past and given meds and refuses to take them - Pt denies myalgia, arthralgia today, mostly describes the feeling of her skin crawling with anxiety - Home with xanax 5 tabs prn HS and instructions to follow up with pcp, she understands Dispo: - Home with above plan Condition: Stable - Instructions Diet, Activity, Other Instructions: Please return to the ED for any new, persistent, or worsening symptoms. Follow up with your PCP in 1 week. Follow up for repeat iron studies and additional venofer infusions and anti anxiety medication with Dr. Hernandez Resume home medication as directed Will need urology followup regarding work up for blood in urine and need for cystoscopy (referral enclosed) Hematology referral enclosed for further anemia work up Take iron supplements as directed with colace for stool softening and vitamin C Referrals: Chan Dent MD [Staff Physician] - 2 Weeks (Follow up regarding capsule study continued anemia work up ) Santhosh Hernandez MD [Primary Care Provider] - 1 Week (Follow up for repeat iron studies and additional venofer infusions Follow up regarding anti anxiety medication Will need urology followup regarding work up for blood in urine and need for cystoscopy Hematology referral enclosed and need for follow up ) Arnol Alejandre MD [Staff Physician] - 1 Week (Cystoscopy eval ) Karthikeyan Murillo MD [Staff Physician] - Disposition: HOME - Home Medications Comprehensive Discharge Medication List: Ambulatory Orders Amlodipine Besylate [Norvasc -] 5 mg PO DAILY 02/17/17 Atorvastatin Calcium 20 mg PO DAILY 12/25/16 Bupropion HCl [Bupropion Xl] 150 mg PO BID 12/25/16 Alprazolam 1 mg PO HS PRN #5 tablet MDD 1 12/27/16 Ascorbic Acid [Vitamin C -] 500 mg PO DAILY #50 tablet 12/27/16 Docusate Sodium [Colace -] 100 mg PO BID #90 capsule 12/27/16 Ferrous Sulfate [Feosol] 325 mg PO TID #126 tablet 12/27/16 Pantoprazole Sodium [Protonix -] 40 mg PO DAILY #60 tab 12/27/16 This patient is new to me today: No Emergency Visit: Yes ED Registration Date: 12/25/16 Care time: The patient presented to the Emergency Department on the above date and was hospitalized for further evaluation of their emergent condition. Critical Care patient: No - Discharge Referral Referred to [facility] Med [facility] No
[2016-12-27 17:37] VITALS: BP 144/85; PULSE 66; TEMP 98.8
--- NOTE | 2016-12-28 13:02 | PATH ---
Surgical Pathology Report Patient Name: CRICKET BERNABE Med. Rec. #: [id number] /Age/Gender: 1945 (Age: 71) / F Account: [id number] Location: [facility]/SURG Taken: 12/27/2016 Received: 12/27/2016 Reported: 12/28/2016 Physicians: Cas Feldman D.O. Specimen(s) Received A: BX DUODENUM B: BX ANTRAL ULCER C: BX ANGULARIS AND BODY Clinical History Anemia Antral ulcers Final Diagnosis A. DUODENUM, BIOPSY: DUODENAL MUCOSA WITHOUT SIGNIFICANT PATHOLOGIC CHANGES. NO HISTOLOGIC EVIDENCE OF GLUTEN SENSITIVE ENTEROPATHY (CELIAC DISEASE). B. STOMACH, ANTRUM, ULCERS, BIOPSY: GASTRIC ANTRAL MUCOSA WITH MODERATE CHRONIC GASTRITIS AND MARKED REACTIVE GASTROPATHY WITH SURFACE EROSIONS. IMMUNOSTAIN FOR H. PYLORI IS NEGATIVE FOR ORGANISMS. C. STOMACH, ANGULARIS AND BODY, BIOPSY: GASTRIC OXYNTIC MUCOSA WITH MILD TO MODERATE CHRONIC GASTRITIS. IMMUNOSTAIN FOR H. PYLORI IS NEGATIVE FOR ORGANISMS. Electronically Signed Austin Malone M.D. Gross Description A. Received in formalin, labeled "biopsy duodenum" are 4 lynch, irregular portions of soft tissue ranging from 0.1-0.2 cm in greatest dimension. The specimens are submitted in toto in one cassette. B. Received in formalin, labeled "biopsy antral ulcers" are 6 lynch, irregular portions of soft tissue ranging from 0.1-0.5 cm in greatest dimension. The specimens are submitted in toto in one cassette. C. Received in formalin, labeled "biopsy angularis and body" are 3 lynch, irregular portions of soft tissue ranging from 0.1-0.4 cm in greatest dimension. The specimens are submitted in toto in one cassette. 12/27/2016 saudi12/27/2016
[2016-12-28 14:15] LABS: GLIADIN ANTIBODY IGG 4 units (0-19)
== END 2016-12-27 17:58 | disposition home or self-care (01) ==
LOC: JER 17:16 → JERBED 20:01 → J8W 22:21
PROVIDERS: ADMIT Internal Medicine; ATTEND Nurse Practitioner Acute Care
PROC: 30233N1 Transfusion of Nonautologous Red Blood Cells into Peripheral Vein, Percutaneous Approach (ICD-10-PCS; principal; 2016-12-25)
PROC: 3E033GC Introduction of Other Therapeutic Substance into Peripheral Vein, Percutaneous Approach (ICD-10-PCS; 2016-12-25)
DX: D50.0 Iron deficiency anemia secondary to blood loss (chronic) (principal); R20.2 Paresthesia of skin; I10 Essential (primary) hypertension; F32.9 Major depressive disorder, single episode, unspecified; G62.9 Polyneuropathy, unspecified; E78.5 Hyperlipidemia, unspecified; F17.210 Nicotine dependence, cigarettes, uncomplicated; K64.8 Other hemorrhoids
CPT/HCPCS: 36415; 36430; 71010-TC; 80048; 80053; 81003; 81015; 82272; 82607; 82728; 82746; 82784; 83036; 83516; 83540; 83550; 83735; 85025; 85027; 85044; 85610; 86850; 86900; 86901; 86922; 87177; 87209; 88305-TC; 88342-TC; 93005; 93010; 96365; 99285-25; G0378; J1756; P9038; P9058